=== PATIENT | male | born 1950 | race Caucasian/White ===

== ENCOUNTER → 2020-02-29 11:45 | Outpatient (BNVA) | payer MEDICARE, MEDICAID, SELFPAY | PROVIDERS: PCP Nurse Practitioner Family; Visit Provider Nurse Practitioner Family | DX: I10 Essential (primary) hypertension (principal); E11.9 Type 2 diabetes mellitus without complications | CPT/HCPCS: 80053; 80061; 83036; 85025 ==

== ENCOUNTER → 2020-05-17 09:51 | Outpatient (BNVA) | payer MEDICARE, MEDICAID, SELFPAY | PROVIDERS: PCP Nurse Practitioner Family; Visit Provider Urology | DX: R97.20 Elevated prostate specific antigen [PSA] (principal); N40.1 Benign prostatic hyperplasia with lower urinary tract symptoms; N52.1 Erectile dysfunction due to diseases classified elsewhere | CPT/HCPCS: 81003; 84153 ==

== ENCOUNTER → 2020-06-07 10:59 | Outpatient (BNVA) | payer MEDICARE, MEDICAID, SELFPAY | PROVIDERS: PCP Nurse Practitioner Family; Visit Provider Nurse Practitioner Family | DX: E11.9 Type 2 diabetes mellitus without complications (principal); I10 Essential (primary) hypertension; E78.5 Hyperlipidemia, unspecified; J44.9 Chronic obstructive pulmonary disease, unspecified; E11.65 Type 2 diabetes mellitus with hyperglycemia; Z86.711 Personal history of pulmonary embolism; Z78.9 Other specified health status; Z72.0 Tobacco use | CPT/HCPCS: 80053; 80061; 82043; 83036; 84443; 85025 ==

== ENCOUNTER → 2020-10-20 13:49 | Outpatient (BNVA) | payer MEDICARE, MEDICAID, SELFPAY | PROVIDERS: PCP Nurse Practitioner Family; Visit Provider Nurse Practitioner Family | DX: N48.89 Other specified disorders of penis (principal); R81 Glycosuria; E11.65 Type 2 diabetes mellitus with hyperglycemia; R21 Rash and other nonspecific skin eruption; N48.1 Balanitis | CPT/HCPCS: 36416; 80053; 80061; 81000; 82962; 83036; 85025; 87530 ==

== ENCOUNTER → 2021-02-09 09:44 | Outpatient (BNVA) | payer MEDICARE, MEDICAID, SELFPAY | PROVIDERS: PCP Nurse Practitioner Family; Visit Provider Nurse Practitioner Family | DX: E11.65 Type 2 diabetes mellitus with hyperglycemia (principal) | CPT/HCPCS: 80053; 80061; 82043; 83036; 85025 ==

== ENCOUNTER → 2021-05-17 08:38 | Outpatient (BNVA) | payer MEDICARE, MEDICAID, SELFPAY | PROVIDERS: PCP Nurse Practitioner Family; Visit Provider Urology | DX: N40.1 Benign prostatic hyperplasia with lower urinary tract symptoms (principal); R97.20 Elevated prostate specific antigen [PSA] | CPT/HCPCS: 81003; 84153 ==

== ENCOUNTER 2021-10-02 08:05 | Inpatient (IN) | payer MEDICARE, MEDICAID, SELFPAY ==
[2021-10-02] VITALS (24 sets, daily range): BP systolic 93–157; BP diastolic 58–94; PULSE 72–128; RESP 16–29; TEMP 36.4–39.4; O2SAT 92–99; BMI 25.0
--- NOTE | 2021-10-02 08:13 | ECG_ITS ---
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 Measurements Intervals [place] Rate: 120 P: 49 WI: 214 QRS: -50 QRSD: 94 T: 31 QT: 420 QTc: 595 Interpretive Statements SINUS TACHYCARDIA WITH FIRST DEGREE AV BLOCK PATTERN CONSISTENT WITH PULMONARY DISEASE SEPTAL MYOCARDIAL INFARCTION , OF INDETERMINATE AGE [40+ ms Q WAVE IN V1/V2] INFERIOR MYOCARDIAL INFARCTION , OF INDETERMINATE AGE [40+ ms Q WAVE AND/OR ST/T ABNORMALITY IN II/aVF] Compared to ECG 04/03/2019 16:19:50 First degree AV block now present Myocardial infarct finding now present Sinus rhythm no longer present Left-axis deviation no longer present Intraventricular conduction delay no longer present Electronically Signed On 10-03-2021 9:16:39 CDT by Albert Eng M.D. [id number]
--- NOTE | 2021-10-02 08:13 | CT_ITS ---
WS: [id number] CT ABDOMEN PELVIS TECHNIQUE: Contrast-enhanced CT of the abdomen and pelvis with coronal and sagittal reformatted image s. CLINICAL INFORMATION: abd pain COMPARISON: None. DLP: 1613.[address] scans at [facility] use at least one of these dose optimization techniques: automated e xposure control; mA and/or kV adjustment per patient size (includes targeted exams where dose is matc hed to clinical indication); or iterative reconstruction. FINDINGS:Diffuse enhancement of the appendix with fluid distention compatible with acute appendicitis . Appendix measures 8-9 mm in transverse dimension. Appendix extends anteriorly and cephalad with tip in the anterior RIGHT abdomen. Surrounding inflammatory stranding and edema. One or two tiny locules of associated air suspicious for microperforation. No drainable abscess or fluid collection. Small a mount of free fluid in the pelvis. Mild diffuse fatty infiltration liver. Normal portal vein and splenic vein. Normal GE junction. Lizzeth l spleen. Mild fatty atrophy of the pancreas. Adrenal glands are normal. Normal renal parenchymal enh ancement. No hydronephrosis. Small LEFT renal cysts. Tiny LEFT pleural effusion. Bibasilar atelectasi s. Sternotomy. Normal caliber abdominal aorta. Moderate aortic atheromatous disease. No aneurysm. Cande iac and SMA are patent. Markedly enlarged heterogeneously enhancing nodular prostate. Prominent nodularity along the ventral superior prostate. Indentation on the bladder with diffuse bladder wall thickening compatible with bl adder outlet obstruction. Mild thickening of the seminal vesicles. Small amount of free fluid in the pelvis. Sigmoid diverticulosis. No evidence of high-grade small or large bowel obstruction. Small amount of fluid along the RIGHT inguinal canal. Grade 1 anterolisthesis L4 on L5. Chronic anter ior wedging in the lower thoracolumbar junction at T12-L1. RIGHT external iliac artery stents CT/CT abdomen pelvis w con* [id number] IMPRESSION: 1. Findings compatible with acute appendicitis. Appendix extends anterior and cephalad with tip in the RIGHT midabdomen. 1 or 2 tiny locules of air about the appendix tip suspicious for microperforation. 2. No evidence of drainable abscess or fluid collection. 3. Small amount of free fluid in the pelvis. 4. Markedly enlarged heterogeneous nodular prostate measuring 5.1 x 5.7 x 7.8 cm AP by transverse by craniocaudal. Recommend correlation PSA. Findings suspic ious for neoplasia/hyperplasia 5. Evidence of bladder outlet obstruction with diffuse bladder wall thickening . 6. Incidental fat-containing umbilical hernia. 7. Trace LEFT pleural fluid. Bibasilar atelectasis Notified aThir Roth DO at 10/02/2021 10:19 AM.
--- NOTE | 2021-10-02 08:21 | PC.NURSE ---
PT PLACED ON CONTINUOUS SPO2, NIBP, AND CM.
[2021-10-02] MEDS: ondansetron 2 mg/ML SDV 2 mL 4 MG IVP (08:28)
--- NOTE | 2021-10-02 08:36 | XR_ITS ---
WS: [id number] XR chest 1V portable [id number] REASON FOR EXAM: dyspnea/cough FINDINGS: Status post coronary artery bypass surgery. Mild cardiomegaly. Moderate tortuosity the thoracic aorta without aneurysmal dilatation. No acute pulmonary parenchymal abnormality is identified. There is calcified granulomatous disease bi laterally. There is blunting of both costophrenic angles, presumably scarring. There is moderate degenerative spondylosis in the mid and lower thoracic spine and moderately severe degenerative arthropathy in both shoulder joints most severe on the left. XR/XR chest 1V portable [id number] IMPRESSION: No acute chest abnormality.
--- NOTE | 2021-10-02 08:36 | W.ED.ABDPA2 ---
HPI - Abdominal Pain General: Chief Complaint: Abdominal Pain Stated Complaint: ABDOMINAL PAIN Time Seen by Provider: 10/02/21 08:10 Source: patient Mode of arrival: EMS Limitations: no limitations History of Present Illness: 71-year-old male who presents to the emergency room with complaints of right upper quadrant abdominal pain and tenderness. He is also short of breath and tachycardic on arrival. He states his breathing is actually at his baseline is not normally on oxygen but is requiring oxygen on arrival here. Patient denies any chest pain. He has had some vomiting. Denies any hematochezia melena hematemesis or coffee-ground emesis eyes any dysuria urgency or frequency or fever sweats or chills he is not noticed anything that exacerbates or relieves it is not tried any [id number] medications for it. MD elicited complaint: abdominal pain Onset (ago): day(s) Pain Consistency: constant Location: RUQ Severity: moderate Quality: cramping Radiation: none Migration to: no migration Exacerbating factors: nothing Relieving factors: nothing Associated Symptoms: Reports GI cramping; Denies anorexia, belching, bloating, change in bowel habits, change in stool character, chills, coffee ground emesis, constipation, diarrhea, dyspepsia, dysuria, excessive flatus, fever(s), heartburn, hematochezia, hematuria, hematemesis, fecal incontinence, loose stools, melena, nausea, poor appetite, syncope and vomiting Review of Systems Const: Denies: fever(s) or chills ENMT: Denies: throat pain, ear or mastoid pain, nasal discharge or nasal congestion Card: Denies: syncope Resp: Denies: dyspnea, productive cough or non-productive cough GI: Reports: GI cramping; Denies: nausea, vomiting, hematemesis, coffee ground emesis, heartburn, diarrhea, constipation, bloating, belching, excessive flatus, fecal incontinence, change in bowel habits, change in stool character, hematochezia or melena : Denies: dysuria or hematuria Skin/Breast: Denies: rash or pruritus PFS ED PFSH: Medical History Anticoagulation adequate with anticoagulant therapy BPH (benign prostatic hyperplasia) BPH loc w urin obs/LUTS COPD (chronic obstructive pulmonary disease) Diabetes Dyslipidemia Elevated PSA HTN (hypertension) Hx pulmonary embolism PAD (peripheral artery disease) Statin intolerance Tobacco abuse Surgical History S/P CABG (coronary artery bypass graft) S/P PTCA (percutaneous transluminal coronary angioplasty) Social History Smoking and tobacco status: current every day smoker cigarettes Packs smoked per day: 2 Years cigarettes smoked: 50 Second hand smoke exposure: Yes Alcohol intake: current Alcohol intake frequency: 3 or more drinks per day Alcohol type: hard liquor Caregiver/support person: Yes Lives independently: Yes Household members: spouse Housing: House Marital status: Current occupational status: retired History of recent travel: No Current gender identity: Male Special jaison needs: No Agree to transfusion: Yes Physical Exam Const: GENERAL APPEARANCE: cooperative and comfortable ORIENTATION/CONSCIOUSNESS: Yes awake, Yes oriented to person, Yes oriented to place and Yes oriented to time HENMT: COMMON NORMALS: normocephalic, atraumatic and hearing grossly normal bilaterally HEAD & SCALP: normocephalic and atraumatic Neck/C-Spine: COMMON NORMALS: no JVD Resp: COMMON NORMALS: normal respiratory effort, No retractions, No use of accessory muscles and clear to auscultation bilaterally AUSCULTATION: clear to auscultation bilaterally Cardio: COMMON NORMALS: no JVD, regular rate, regular rhythm and No murmurs present (Cardio) RATE: regular rate RHYTHM: regular rhythm GI: COMMON NORMALS: No hepatosplenomegaly present AUSCULTATION: Yes normoactive bowel sounds PALPATION: Yes Tenderness to palpation present (GI) Details: RUQ, No Guarding due to palpation present (GI) and Yes No hepatosplenomegaly present OTHER: Umbilical hernia easily reducible Extremity: COMMON NORMALS: normal to inspection, capillary refill normal, no clubbing, cyanosis or edema, no calf tenderness and no pedal edema Neuro: SENSORIUM/ORIENTATION: Yes oriented to person, Yes oriented to place and Yes oriented to time Skin: COMMON NORMALS: no rashes or lesions noted GENERAL SKIN EXAM: no rashes or lesions noted Course Vital Signs: Vital signs: Vital Signs Temperature 102.9 F H 10/02/21 08:08 Pulse Rate 123 H 10/02/21 08:08 Respiratory Rate 20 H 10/02/21 09:09 Blood Pressure 135/87 10/02/21 08:08 Pulse Oximetry 92 10/02/21 09:09 MDM - Abdominal Pain Medical Decision Making Patient's pain is localized no peritoneal signs White count normal CT shows acute appendicitis with microperforations. Started on Zosyn. Will admit to the hospitalist consult surgery Medical Records I reviewed the patient's medical records. Lab Data I reviewed the patient's lab results. : 10/02/21 08:20 10/02/21 08:20 Labs/Radiology: Radiology Impressions Abdomen/Pelvis CT 10/02/21 08:13 IMPRESSION: 1. Findings compatible with acute appendicitis. Appendix extends anterior and cephalad with tip in the RIGHT midabdomen. 1 or 2 tiny locules of air about the appendix tip suspicious for microperforation. 2. No evidence of drainable abscess or fluid collection. 3. Small amount of free fluid in the pelvis. 4. Markedly enlarged heterogeneous nodular prostate measuring 5.1 x 5.7 x 7.8 cm AP by transverse by craniocaudal. Recommend correlation PSA. Findings suspicious for neoplasia/hyperplasia 5. Evidence of bladder outlet obstruction with diffuse bladder wall thickening. 6. Incidental fat-containing umbilical hernia. 7. Trace LEFT pleural fluid. Bibasilar atelectasis Notified Tahir Roth DO at 10/02/2021 10:19 AM. Chest X-Ray 10/02/21 08:36 IMPRESSION: No acute chest abnormality. Laboratory Results WBC 6.8 10^3/uL (4.0-10.0) 10/02/21 08:20 RBC 4.92 10^6/uL (4.1-5.3) 10/02/21 08:20 Hgb 16.1 g/dL (11.7-16.6) 10/02/21 08:20 Hct 46.5 % (42.0-52.0) 10/02/21 08:20 MCV 94.5 fl (80-94) H 10/02/21 08:20 MCH 32.7 pg (28.0-34.0) 10/02/21 08:20 MCHC 34.6 g/dL (30.0-36.0) 10/02/21 08:20 RDW 14.2 % (12.1-15.1) 10/02/21 08:20 Plt Count 166 10^3/cmm (130-400) 10/02/21 08:20 MPV 11.0 fL (7.4-10.4) H 10/02/21 08:20 Neut % (Auto) 87.8 % 10/02/21 08:20 Lymph % (Auto) 7.3 % 10/02/21 08:20 [place] % (Auto) 4.0 % 10/02/21 08:20 Eos % (Auto) 0.0 % 10/02/21 08:20 Baso % (Auto) 0.3 % 10/02/21 08:20 Neut # (Auto) 5.99 10^3/uL (1.8-7.7) 10/02/21 08:20 Lymph # (Auto) 0.5 10^3/uL (0.8-4.8) L 10/02/21 08:20 [place] # (Auto) 0.3 10^3/uL (0.2-0.9) 10/02/21 08:20 Eos # (Auto) 0.0 10^3/uL (0.0-0.8) 10/02/21 08:20 Baso # (Auto) 0.0 10^3/uL (0.0-0.1) 10/02/21 08:20 Nucleated RBC % (auto) 0 % 10/02/21 08:20 Nucleated RBCs # 0.0 /100WBC 10/02/21 08:20 Sodium 134 mmol/L (136-145) L 10/02/21 08:20 Potassium 3.6 mmol/L (3.5-5.1) 10/02/21 08:20 Chloride 95 mmol/L (98-107) L 10/02/21 08:20 Carbon Dioxide 27 mmol/L (22-29) 10/02/21 08:20 Anion Gap 15.6 (5-19) 10/02/21 08:20 BUN 22 mg/dL (8-23) 10/02/21 08:20 Creatinine 0.9 mg/dL (0.7-1.2) 10/02/21 08:20 GFR Calculation Not Reportable 10/02/21 08:20 Glucose 217 mg/dL (65-115) H 10/02/21 08:20 Calculated Osmolality 288 mOsm/kg (285-295) 10/02/21 08:20 Lactic Acid 1.7 mmol/L (0.5-2.2) 10/02/21 08:20 Calcium 8.9 mg/dL (8.5-10.5) 10/02/21 08:20 Total Bilirubin 0.8 mg/dL (0.15-1.2) 10/02/21 08:20 AST 29 U/L (0-40) 10/02/21 08:20 ALT 27 U/L (0-41) 10/02/21 08:20 Alkaline Phosphatase 67 IU/L (40-130) 10/02/21 08:20 Total Protein 6.3 g/dL (6.6-8.7) L 10/02/21 08:20 Albumin 3.6 g/dL (3.5-5.2) 10/02/21 08:20 Globulin 2.7 g/dL (1.3-4.6) 10/02/21 08:20 Lipase 26 U/L (13-60) 10/02/21 08:20 Urine Color Dark yellow (Yellow) 10/02/21 08:56 Urine Appearance Clear (CLEAR) 10/02/21 08:56 Urine pH 7 (5-7) 10/02/21 08:56 Ur Specific [place] 1.015 (1.005-1.030) 10/02/21 08:56 Urine Protein 1+ (Negative) H 10/02/21 08:56 Urine Glucose (UA) 1+ (Normal) H 10/02/21 08:56 Urine Ketones 2+ (Negative) H 10/02/21 08:56 Urine Blood Neg (Negative) 10/02/21 08:56 Urine Nitrate Negative (Negative) 10/02/21 08:56 Urine Bilirubin 1+ (Negative) H 10/02/21 08:56 Urine Urobilinogen 8 mg/dL (Negative) H 10/02/21 08:56 Ur Leukocyte Esterase Negative (Negative) 10/02/21 08:56 Urine RBC None /hpf (0-2) 10/02/21 08:56 Urine WBC 0-4 /hpf (0-5) H 10/02/21 08:56 Ur Squamous Epith Cells 0-4 /hpf (0-5) H 10/02/21 08:56 Amorphous Sediment Not Reportable 10/02/21 08:56 Urine Bacteria 1+ /hpf (NONE) H 10/02/21 08:56 Hyaline Casts 0-4 /lpf H 10/02/21 08:56 Urine Mucus 1+ /hpf 10/02/21 08:56 Discharge Plan Discharge Patient Disposition: Admitted As Inpatient Clinical Impression: Acute appendicitis, S/P PTCA (percutaneous transluminal coronary angioplasty), HTN (hypertension), Diabetes, S/P CABG (coronary artery bypass graft), Constipation Condition: Stable Coding Level of Care Code ED Undercutter Operator for Chg Fwd Exam Comprehensive
[2021-10-02] MEDS: lactated ringers 1,000 ML 999 ML IV (08:37)
[2021-10-02 08:40] LABS: Basophils % 0.3 %; Hematocrit 46.5 % (42.0-52.0); Hemoglobin 16.1 g/dL (11.7-16.6); Lymphocytes # 0.5 10^3/uL (0.8-4.8); Lymphocytes % 7.3 %; Mean Corpuscular HGB Conc 34.6 g/dL (30.0-36.0); Mean Corpuscular Hemoglobin 32.7 pg (28.0-34.0); Mean Corpuscular Volume 94.5 fl (80-94); Monocytes # 0.3 10^3/uL (0.2-0.9); Neutrophils # 5.99 10^3/uL (1.8-7.7); Neutrophils % 87.8 %; Nucleated Red Blood Cells % 0 %; Platelet Count 166 10^3/cmm (130-400); Red Blood Count 4.92 10^6/uL (4.1-5.3); Red Cell Distribution Width 14.2 % (12.1-15.1); White Blood Count 6.8 10^3/uL (4.0-10.0)
[2021-10-02 08:53] LABS: Lactic Sepsis W/Reflex 1.7 mmol/L (0.5-2.2)
[2021-10-02 09:01] LABS: Alanine Aminotransferase 27 U/L (0-41); Albumin Level 3.6 g/dL (3.5-5.2); Alkaline Phosphatase 67 IU/L (40-130); Anion Gap 15.6 (5-19); Aspartate Amino Transferase 29 U/L (0-40); Blood Urea Nitrogen 22 mg/dL (8-23); Calcium 8.9 mg/dL (8.5-10.5); Carbon Dioxide 27 mmol/L (22-29); Chloride 95 mmol/L (98-107); Globulin 2.7 g/dL (1.3-4.6); Glucose 217 mg/dL (65-115); Lipase 26 U/L (13-60); Osmolality Calculated 288 mOsm/kg (285-295); Potassium 3.6 mmol/L (3.5-5.1); Sodium 134 mmol/L (136-145); Total Bilirubin 0.8 mg/dL (0.15-1.2); Total Protein 6.3 g/dL (6.6-8.7)
[2021-10-02] MEDS: morphine 4 mg/mL SDV 1 mL IVP (09:09)
[2021-10-02] MEDS: iohexol 300 mg/mL 100 mL Btl IV (09:45)
[2021-10-02 10:00] LABS: Glucose Urine UA 1+ (Normal); Protein Urine 1+ (Negative); Specific Gravity, Urine 1.015 (1.005-1.030); Urine Appearance Clear (CLEAR); Urine Color Dark Yellow (Yellow); pH Urine 7 (5-7)
[2021-10-02 10:01] LABS: Ketones Urine 2+ (Negative)
[2021-10-02 10:02] LABS: Blood Urine Neg (Negative)
[2021-10-02 10:04] LABS: Add Urine Microscopic? YES; Bacteria Urine 1+ /hpf; Bilirubin Urine 1+ (Negative); Leukocyte Esterase Urine Negative (Negative); Nitrate Urine Negative (Negative); Squamous Epithelial Cell Urine 0-4 /hpf (0-5); Urobilinogen Urine 8 mg/dL (Negative); WBC Urine 0-4 /hpf (0-5)
[2021-10-02 10:05] LABS: Add Urine Culture? No; Hyaline Casts Urine 0-4 /lpf; Mucus Urine 1+ /hpf
[2021-10-02] MEDS: piperacillin-tazobactam 3.375 GM in sodium chloride 0.9% (plus) 50 ML IV ×3 (10:42→23:49)
--- NOTE | 2021-10-02 10:58 | PC.PHAR ---
pts verified pts medications-pts states the pt is no longer taking fenofibrate 145mg last filled 07/21/21 30d/s
--- NOTE | 2021-10-02 11:00 | P.CONIM_ITS ---
Providers/Reason For Consult Consulting Physician/Specialty*: Edward Aranda MD, hospitalist Reason for Consult*: Medical management, COPD, coronary disease, history of pulmonary embolism, diabetes Requesting Physician: Delia Aviles MD Attending Physician: Edward Aranda MD Primary Care Provider: HARLEY Manning History of Present Illness History of Present Illness Pito Lucas is a 71 year old male who presents to the emergency department with 3 days of abdominal pain in the right lower quadrant, nausea, vomiting as well as chills. He had not recorded any fever at home, although he has 1 on admission to the emergency department He reported he was not getting any better so came in. Last bowel movement 2 to 3 days ago. Reports no blood in his emesis, or stool. Reports no recent issues with his heart and last intervention was when bypass with surgery was done in 2019. At that point he had a complica tion of pulmonary embolism, but is not on anticoagulation currently. He is on antiplatelet medication, aspirin daily. He denies any shortness of breath although he carries a diagnosis of COPD. He does use inhalers on occasion. He continues to smoke. Review of Systems General: Reports: 10 or more systems reviewed and unremarkable except in HPI and below Const: Reports: chills; Denies: fever(s) Eyes: Denies: change in vision ENMT: Reports: other (Dry mouth); Denies: throat pain Card: Denies: chest pain Resp: Denies: dyspnea GI: Reports: abdominal pain, nausea and vomiting; Denies: hematemesis or hematochezia : Denies: flank pain Musc: Denies: neck pain Skin/Breast: Denies: rash Neuro: Denies: headache(s) Psych: Denies: anxiety or depression Endo: Denies: polyuria Sandro/Lymph: Denies: easy bruising All/Imm: Denies: urticaria Medications/Allergies Home Medications Medication Instructions Recorded Confirmed Last Taken Type carvedilol 6.25 mg tablet 6.25 mg PO Q12H #180 tab 01/06/21 10/02/21 09/29/21 Rx multivitamin 1 tab PO DAILY 07/26/21 10/02/21 Unknown History albuterol sulfate 90 mcg/actuation 2 puff INHALATION Q4H PRN 10/02/21 10/02/21 Unknown History aerosol inhaler (Ventolin HFA) aspirin 81 mg tablet,delayed 81 mg PO QAM 10/02/21 10/02/21 09/29/21 History release finasteride 5 mg tablet 5 mg PO QAM 10/02/21 10/02/21 Unknown History glipizide 10 mg tablet, extended 10 mg PO QAM 10/02/21 10/02/21 09/29/21 History release 24 hr lisinopril 20 mg tablet 20 mg PO QAM 10/02/21 10/02/21 09/29/21 History tamsulosin 0.4 mg capsule 0.4 mg PO BID 10/02/21 10/02/21 09/29/21 History umeclidinium 62.5 mcg/actuation 1 inh INHALATION DAILY 10/02/21 10/02/21 Unknown History blister powder for inhalation (Incruse Ellipta) Allergies Allergy/AdvReac Type Severity Reaction Status Date / Time No Known Allergies Allergy Verified 10/02/21 10:57 PFSH Acute PFSH: Medical History (Updated 10/02/21 @ 11:03 by Edward Aranda MD) Anticoagulation adequate with anticoagulant therapy BPH (benign prostatic hyperplasia) BPH loc w urin obs/LUTS CAD (coronary artery disease) COPD (chronic obstructive pulmonary disease) Diabetes Dyslipidemia Elevated PSA HTN (hypertension) Hx pulmonary embolism PAD (peripheral artery disease) Statin intolerance Tobacco abuse Surgical History S/P CABG (coronary artery bypass graft) S/P PTCA (percutaneous transluminal coronary angioplasty) Family History (Updated 10/02/21 @ 11:04 by Edward Aranda MD) Other Diabetes Social History (Updated 10/02/21 @ 11:04 by Edward Aranda MD) Smoking and tobacco status: current every day smoker cigarettes Packs smoked per day: 2 Years cigarettes smoked: 50 Second hand smoke exposure: Yes Alcohol intake: current Alcohol intake frequency: few times a week Alcohol type: hard liquor Caregiver/support person: Yes Lives independently: Yes Household members: spouse Housing: House Marital status: Current occupational status: retired History of recent travel: No Current gender identity: Male Special jaison needs: No Agree to transfusion: Yes Vitals/I&O/Wt Last Vital Signs Temp 102.9 F H 10/02/21 08:08 Pulse 123 H 10/02/21 08:08 Resp 20 H 10/02/21 09:09 BP 135/87 10/02/21 08:08 Pulse Ox 92 10/02/21 09:09 Weight last 48 hrs Weight 74.843 kg Physical Exam Narrative: General exam is a white male, conversant and pleasant, reporting he has right lower quadrant abdominal pain. HEENT: Pupils equally round. Oropharynx clear. Head is atraumatic and normocephalic Neck is supple no lymphadenopathy or thyromegaly Cardiovascular tachycardic, no murmur. No S3 or S4 Lungs are clear to auscultation bilaterally. Diminished breath sounds are noted. No wheezes or crackles Abdomen is tender right lower quadrant. No significant rebound. No obvious organomegaly. Positive bowel sounds exam is deferred Extremities no cyanosis clubbing or edema, cap refill brisk Skin no rash Neuro no focal deficits. Data : 10/02/21 08:20 10/02/21 08:20 Other Labs: EKG demonstrates sinus tachycardia, left axis deviation, Q waves inferiorly, intraventricular conduction delay borderline Chest x-ray no infiltrate CT abdomen pelvis concerning for acute appendicitis, small amount of air about the tip suspicious for microperforation, small amount of free fluid in the pelvis, nodular prostate, trace left pleural fluid Blood cultures were drawn LFTs normal Calcium normal Lactic acid 1.7 Urinalysis 0-4 white blood cells 0-4 red blood cells Micro: Microbiology 10/02/21 09:03 Blood Culture - Preliminary Blood SPECIMEN COLLECTED 10/02/21 08:20 Blood Culture - Preliminary Blood SPECIMEN COLLECTED A&P Assessment and plan (1) Acute appendicitis: Patient with right lower quadrant pain, fever, CT scan all consistent with acute appendicitis. Surgery is evaluating, and taking him to the OR today N.p.o. status Pain and nausea control IV antibiotics consisting of Zosyn Secondary to fever, presentation blood cultures were drawn. Status: Acute (2) CAD (coronary artery disease): Patient with no significant cardiac symptoms since bypass surgery in 2019 Continue his regular medicines of aspirin, carvedilol. He is intolerant of statins Status: Acute (3) COPD (chronic obstructive pulmonary disease): Encourage smoking cessation as he has ongoing tobacco dependency Offered nicotine patch which he refused DuoNeb every 6 hours, budesonide Incentive spirometry will be appropriate following surgery Status: Acute Qualifiers: COPD type: unspecified COPD Qualified Code(s): J44.9 - Chronic obstructive pulmonary disease, unspecified (4) Diabetes: ConsistentMild sliding scale insulin Diet, when allowed to have p.o. Status: Acute (5) Hx pulmonary embolism: Past history of pulmonary embolism associated with coronary artery bypass grafting. Currently not on anticoagulation. Recommend DVT prophylaxis anticoagulation, following surgery Status: Acute (6) HTN (hypertension): Continue home medications Status: Acute Plan Thank you for this consult, I will continue to follow along with you Full code SCDs currently for DVT prophylaxis, but will need pharmacologic anticoagulation following surgery Consult Attestations Medical Necessity Statement: May need less than 2 midnight stay for evaluation and treatment of acute appendicitis, depending upon surgical findings. Coding Level of Care Code Acute Administrative Executive for [facility] Fwd Diagnoses Acute appendicitis K35.80 CAD (coronary artery disease) I25.10 COPD (chronic obstructive pulmonary disease) J44.9 COPD type: unspecified COPD Diabetes E11.9 Hx pulmonary embolism Z86.711 HTN (hypertension) I10
--- NOTE | 2021-10-02 11:48 | P.HP_ITS ---
Providers/Chief Complaint Admitting Physician: Maurizio Oates MD Primary Care Provider: HARLEY Manning Chief Complaint: ABDOMINAL PAIN History of Present Illness History of present illness: Pito Lucas is a 71 year old male with acute onset of abdominal pain over the past 3 days particularly towards the right lower quadrant associated with nausea and vomiting and chills. As the pain got worse patient decided to come to the emergency department for further evaluation he denies any other constitutional symptoms. Patient is well-known with history of diabetes mellitus type 2 on glipizide. Further blood work showed a WBC count of 6.8, platelet count of 166, lactic acid of 1.7, creatinine of 0.9 and glucose 217. Patient is well-known with history of prostate cancer with metastasis. Patient undergone a CT scan Of the abdomen and pelvis that showed; 1.? Findings compatible with acute appendicitis. Appendix extends anterior and cephalad with tip in the RIGHT midabdomen. 1 or 2 tiny locules of air about the appendix tip suspicious for microperforation. 2.? No evidence of drainable abscess or fluid collection. 3.? Small amount of free fluid in the pelvis. 4.? Markedly enlarged heterogeneous nodular prostate measuring 5.1 x 5.7 x 7.8 cm AP by transverse by craniocaudal. Recommend correlation PSA. Findings suspicious for neoplasia/hyperplasia 5.? Evidence of bladder outlet obstruction with diffuse bladder wall thickening. 6.? Incidental fat-containing umbilical hernia. 7.? Trace LEFT pleural fluid. Bibasilar atelectasis General surgery was consulted for further evaluation and potential intervention, patient reports that he had a colonoscopy about 5 to 6 years ago and was normal. Review of Systems General: Reports: 10 or more systems reviewed and unremarkable except in HPI and below Medications/Allergies Home Medications Medication Instructions Recorded Confirmed Last Taken Type carvedilol 6.25 mg tablet 6.25 mg PO Q12H #180 tab 01/06/21 10/02/21 09/29/21 Rx multivitamin 1 tab PO DAILY 07/26/21 10/02/21 Unknown History albuterol sulfate 90 mcg/actuation 2 puff INHALATION Q4H PRN 10/02/21 10/02/21 Unknown History aerosol inhaler (Ventolin HFA) aspirin 81 mg tablet,delayed 81 mg PO QAM 10/02/21 10/02/21 09/29/21 History release finasteride 5 mg tablet 5 mg PO QAM 10/02/21 10/02/21 Unknown History glipizide 10 mg tablet, extended 10 mg PO QAM 10/02/21 10/02/21 09/29/21 History release 24 hr lisinopril 20 mg tablet 20 mg PO QAM 10/02/21 10/02/21 09/29/21 History tamsulosin 0.4 mg capsule 0.4 mg PO BID 10/02/21 10/02/21 09/29/21 History umeclidinium 62.5 mcg/actuation 1 inh INHALATION DAILY 10/02/21 10/02/21 Unknown History blister powder for inhalation (Incruse Ellipta) Allergies Allergy/AdvReac Type Severity Reaction Status Date / Time No Known Allergies Allergy Verified 10/02/21 10:57 PFSH Acute PFSH: Medical History Anticoagulation adequate with anticoagulant therapy BPH (benign prostatic hyperplasia) BPH loc w urin obs/LUTS CAD (coronary artery disease) COPD (chronic obstructive pulmonary disease) Diabetes Dyslipidemia Elevated PSA HTN (hypertension) Hx pulmonary embolism PAD (peripheral artery disease) Statin intolerance Tobacco abuse Surgical History S/P CABG (coronary artery bypass graft) S/P PTCA (percutaneous transluminal coronary angioplasty) Family History Other Diabetes Social History Smoking and tobacco status: current every day smoker cigarettes Packs smoked per day: 2 Years cigarettes smoked: 50 Second hand smoke exposure: Yes Alcohol intake: current Alcohol intake frequency: few times a week Alcohol type: hard liquor Caregiver/support person: Yes Lives independently: Yes Household members: spouse Housing: House Marital status: Current occupational status: retired History of recent travel: No Current gender identity: Male Special jaison needs: No Agree to transfusion: Yes Vitals/I&O/Wt Last Vital Signs Temp 99.9 F H 10/02/21 11:12 Pulse 109 H 10/02/21 11:12 Resp 18 10/02/21 11:12 BP 129/86 10/02/21 11:12 Pulse Ox 96 10/02/21 11:12 Weight last 48 hrs Weight 165 lb Physical Exam Const: COMMON NORMALS: no acute distress and patient oriented x3 GENERAL APPEARANCE: cooperative ORIENTATION/CONSCIOUSNESS: Yes awake, Yes oriented to person, Yes oriented to place and Yes oriented to time HENMT: COMMON NORMALS: normocephalic HEAD & SCALP: normocephalic Eye: COMMON NORMALS: Equal, round and reactive pupils present and no scleral icterus PUPIL: Yes Equal, round and reactive pupils present Lymph: LYMPHATIC: no lymphadenopathy noted Chest: COMMONS NORMALS: normal inspection of the chest Resp: COMMON NORMALS: normal respiratory effort and clear to auscultation bilaterally AUSCULTATION: clear to auscultation bilaterally Cardio: COMMON NORMALS: S1 normal heart sound present and S2 normal heart sound present; negative for No murmurs present (Cardio) HEART SOUNDS: S1 normal heart sound present and S2 normal heart sound present GI: COMMON NORMALS: Soft to palpation; negative for No hepatosplenomegaly present INSPECTION: Yes normal to inspection PALPATION: Yes Soft to palpation, No Firmness to palpation present (GI), Yes Tenderness to palpation present (GI) Details: RLQ, Yes Guarding due to palpation present (GI) (Maximal tenderness and guarding at McBurney's point) in the RLQ, No Rigid due to palpation, No No hepatosplenomegaly present and Yes Hernia present umbilical (Chronic incarcerated umbilical hernia) Neuro: COMMON NORMALS: patient oriented x3 SENSORIUM/ORIENTATION: Yes or iented to person, Yes oriented to place and Yes oriented to time Psych: COMMON NORMALS: mental status grossly normal Skin: COMMON NORMALS: no rashes or lesions noted GENERAL SKIN EXAM: no rashes or lesions noted Data : 10/02/21 08:20 10/02/21 08:20 Micro: Microbiology 10/02/21 09:03 Blood Culture - Preliminary Blood SPECIMEN COLLECTED 10/02/21 08:20 Blood Culture - Preliminary Blood SPECIMEN COLLECTED A&P Assessment and plan (1) Acute appendicitis: After thorough history physical examination and reviewing the chart and images with my personal interpretion, I counseled the patient for laparoscopic appendec roger possible open with open umbilical hernia repair. Indications, risks, benefits and alternatives were all discussed with the patient and did agree to proceed. Rationale was carefully and clearly discussed with the patient.Appropriate informed consent have been reviewed and signed Status: Acute Attestations Medical Necessity Statement*: Observation status for perioperative care Coding Level of Care Code Acute Programmer Analyst Health It for [facility] Fwd Diagnoses Acute appendicitis K35.80
--- NOTE | 2021-10-02 11:54 | P.ANESASSM_ITS ---
Pre-Anesthetic Assessment Height/Weight: Height 1.73 m Weight 74.843 kg Temp Pulse Resp BP Pulse Ox 99.9 F H 109 H 18 129/86 96 10/02/21 11:12 10/02/21 11:12 10/02/21 11:12 10/02/21 11:12 10/02/21 11:12 Operation Date: 10/02/21 11:35 Proposed Procedures p Laparoscopic Appendectomy(Not Applicable) - Maurizio Oates MD Familial anesthetic complications: none Was Beta Debra taken within 24 hours: Yes Was Clonidine taken within 24 hours: N/A Last intake: Intake Last Liquid Date 10/01/21 Last Liquid Time 18:00 Last Solid Date 10/01/21 Last Solid Time 12:00 Social Alcohol and Tobacco Exam alert, oriented x 3, clear to auscultation bilaterally and regular rate & rhythm Airway Mallampati: Class III Dentition: chipped and other (multiple missing, poor dentition) Pulmonary Chronic Obstructive Pulmonary Disease CV/HEM Coronary Artery Disease, Hypertension and Peripheral Vascular Disease Metabolic Diabetes Mellitus Anesthetic Plan ASA status: 3 Anesthesia: General Risk of > 500 ml blood loss (7ml/kg in children): No Medications/Allergies Home Medications Medication Instructions Recorded Confirmed Last Taken Type carvedilol 6.25 mg tablet 6.25 mg PO Q12H #180 tab 01/06/21 10/02/21 09/29/21 Rx multivitamin 1 tab PO DAILY 07/26/21 10/02/21 Unknown History albuterol sulfate 90 mcg/actuation 2 puff INHALATION Q4H PRN 10/02/21 10/02/21 Unknown History aerosol inhaler (Ventolin HFA) aspirin 81 mg tablet,delayed 81 mg PO QAM 10/02/21 10/02/21 09/29/21 History release finasteride 5 mg tablet 5 mg PO QAM 10/02/21 10/02/21 Unknown History glipizide 10 mg tablet, extended 10 mg PO QAM 10/02/21 10/02/21 09/29/21 History release 24 hr lisinopril 20 mg tablet 20 mg PO QAM 10/02/21 10/02/21 09/29/21 History tamsulosin 0.4 mg capsule 0.4 mg PO BID 10/02/21 10/02/21 09/29/21 History umeclidinium 62.5 mcg/actuation 1 inh INHALATION DAILY 10/02/21 10/02/21 Unknown History blister powder for inhalation (Incruse Ellipta) Allergies Allergy/AdvReac Type Severity Reaction Status Date / Time No Known Allergies Allergy Verified 10/02/21 10:57 COUNT INCLUDES THE [facility] Anesthesia Medical History Anticoagulation adequate with anticoagulant therapy BPH (benign prostatic hyperplasia) BPH loc w urin obs/LUTS CAD (coronary artery disease) COPD (chronic obstructive pulmonary disease) Diabetes Dyslipidemia Elevated PSA HTN (hypertension) Hx pulmonary embolism PAD (peripheral artery disease) Statin intolerance Tobacco abuse Surgical History S/P CABG (coronary artery bypass graft) S/P PTCA (percutaneous transluminal coronary angioplasty) Family History Other Diabetes Social History Smoking and tobacco status: current every day smoker cigarettes Packs smoked per day: 2 Years cigarettes smoked: 50 Second hand smoke exposure: Yes Alcohol intake: current Alcohol intake frequency: few times a week Alcohol type: hard liquor Caregiver/support person: Yes Lives independently: Yes Household members: spouse Housing: House Marital status: Current occupational status: retired History of recent travel: No Current gender identity: Male Special jaison needs: No Agree to transfusion: Yes Data Anesthesia : 10/02/21 08:20 10/02/21 08:20 Short CBC 10/02/21 Range/Units 08:20 WBC 6.8 (4.0-10.0) 10^3/uL Hgb 16.1 (11.7-16.6) g/dL Hct 46.5 (42.0-52.0) % MCV 94.5 H (80-94) fl Plt Count 166 (130-400) 10^3/cmm Neut % (Auto) 87.8 % Neut # (Auto) 5.99 (1.8-7.7) 10^3/uL BMP 10/02/21 08:20 Sodium 134 L Potassium 3.6 Chloride 95 L Carbon Dioxide 27 BUN 22 Creatinine 0.9 Glucose 217 H Calcium 8.9 Liver Function 10/02/21 Range/Units 08:20 Total Bilirubin 0.8 (0.15-1.2) mg/dL AST 29 (0-40) U/L ALT 27 (0-41) U/L Alkaline Phosphatase 67 (40-130) IU/L Albumin 3.6 (3.5-5.2) g/dL Urine 10/02/21 Range/Units 08:56 Urine Color Dark yellow (Yellow) Urine Appearance Clear (CLEAR) Urine pH 7 (5-7) Ur Specific [place] 1.015 (1.005-1.030) Urine Protein 1+ H (Negative) Urine Glucose (UA) 1+ H (Normal) Urine Ketones 2+ H (Negative) Urine Nitrate Negative (Negative) Urine Bilirubin 1+ H (Negative) Ur Leukocyte Esterase Negative (Negative) Urine RBC None (0-2) /hpf Urine WBC 0-4 H (0-5) /hpf Microbiology 10/02/21 09:03 Blood Culture - Preliminary Blood SPECIMEN COLLECTED 10/02/21 08:20 Blood Culture - Preliminary Blood SPECIMEN COLLECTED Cardiac Studies: No Data to Display
[2021-10-02] MEDS: lidocaine 2% INJ 20 mL INJECTION (13:37)
--- NOTE | 2021-10-02 13:55 | PM.OP ---
Operative Report Date of procedure: October 02, 2021 Pre-op diagnosis: Acute appendicitis with concern of perforation Post-op diagnosis: Acute retrocecal appendicitis with perforation, pus is confined towards the right side of the abdomen with omental encasing Procedure done: 1-Laparoscopic appendectomy and intra-abdominal drain placed 2-laparoscopic umbilical hernia repair without mesh Implants: 19 [place] round the drain Specimens removed/disposition: Hernia sac and content Appendix Surgeon: Maurizio Oates MD Gold Frame Assembler: [place] Circulating nurse Claribel Anesthesia: General (AUTOMOTIVE SERVICE ASSISTANT page) Estimated blood loss (mL): 10 IV fluids: 900 Procedure: Patient after being identified in the holding area and asked to void urine, and informed consent per chart ,patient was then taken back to the OR placed in supine position got intubated by anesthesia left arm was tucked tucked ,Timeout was done verifying the patient's name/date of /planned procedure and destination after the procedure, all were in agreement., preoperative antibiotics administered per protocol. prep and drape of the abdomen was done under the usual sterile technique. Started by longitudinal skin incision supraumbilical, noticed incarcerated omental fat that was dissected and the hernia sac and content were sent for pathology. The fascial defect was about half an inch in diameter. Using a Reyes trocar technique safe entry to the abdominal cavity was achieved verified by using 10 mm zero degree laparoscopy, switched to a 30? scope under direct visualization a suprapubic 5 mm trocar was inserted followed by another 5 mm trocar inserted in the left lower quadrant, I was able to position the patient in an T Sanchez and left side down, noticed to have purulent discharge upon entrance to the abdominal cavity but was more confined to the right side of the abdomen, dissection of the retro-cecal acutely inflamed appendix with perforation there was some adhesions towards the lateral pelvic wall that was taken down by sharp and blunt dissection, attention was deviated to the healthy base of the appendix where I had to switch the camera to 5 mm 30? scope got introduced through the left lower quadrant and through the Reyes trocar under direct visualization a GI stapler 45 mm blue load was applied at the healthy part of the base of the appendix, and an Endoloop PDS was applied onto the mesoappendix for control , the appendix was then retrieved in an Endo Catch bag, final survey was done of the abdomen and pelvis , copious and thorough irrigation with warm saline, and suction was obtained, were mercury fluid like in the pelvis due to reaction from the inflamed appendix. Noticed to have a superficial serosal tear of the sigmoid colon and a figure of eight 2-0 silk suture was placed safely. There were some fibrinous exudates on small bowel loops that was irrigated and cleaned Multiple 5 mm clips were applied onto the mesoappendix as well as the appendectomy staple line and a right lateral pelvic wall for minimal oozing. Final look laparoscopy was done showing no other abnormalities or injuries, I decided to place under direct visualization and 19 [place] rounded [place] drain via the suprapubic trocar in place it was the pelvis and right paracolic gutter. All trocars were taken out under direct visualization after the supraumblical trocar site which is the site of the herniation. Was closed by #1 PDS sutures under direct vision using fascial closure device ,followed by skin closure using skin ktahie of all trocar site incisions. infiltration of local lidocaine 2% was done to all incision sites.Dry dressing was applied. Count was completed at the end of the procedure for [place] , sponges and instruments Patient tolerated the procedure well and was transferred to the recovery area after extubation. I was present for the whole entire procedure
--- NOTE | 2021-10-02 16:00 | ANE.PACU2 ---
Inpatient post-anesthesia follow up: Airway intact: Yes Vital signs: Temperature 98.0 F Pulse Rate 73 Respiratory Rate 16 Blood Pressure 112/66 Pulse Oximetry 99 Oxygen Delivery Me thod [ Nasal Cannula Current Rate & Del micheline] Oxygen Delivery Me thod Room Air Oxygen Flow Rate [ Current Rate 3 & Delivery] Oxygen Flow Rate 4 Fraction of Inspir ed Oxygen Hydration adequate: Yes Nausea and vomiting: No Pain level: 2 Mental status: Baseline
[2021-10-02] MEDS: sodium chloride 0.9% 1,000 ML 75 ML IV (16:21)
[2021-10-02] MEDS: sodium chloride 0.9% 1,000 ML 100 ML IV (16:21)
[2021-10-02] MEDS: carvedilol 6.25 mg Tablet PO (16:22)
[2021-10-02] MEDS: famotidine 20 mg/2 mL INJ IVP (16:26)
[2021-10-02 17:05] LABS: Glucose Point of Care 263 mg/dL (70-110)
[2021-10-02] MEDS: insulin lispro 100 unit/1 mL SUBCUT ×2 (17:53→21:10)
[2021-10-02] MEDS: tamsulosin 0.4 mg Capsule PO (17:53)
[2021-10-02] MEDS: budesonide 0.5 mg/2 mL Neb INHALATION (20:12)
[2021-10-02] MEDS: ipratropium-albuterol 3 mL Neb INHALATION (20:12)
[2021-10-02 20:52] LABS: Glucose Point of Care 304 mg/dL (70-110)
[2021-10-02] MEDS: HYDROcodone-acetaminophen 5-325 mg Tablet 1 TAB PO (21:15)
[2021-10-03] VITALS (11 sets, daily range): BP systolic 94–123; BP diastolic 55–68; PULSE 59–78; RESP 16–20; TEMP 36.2–36.8; O2SAT 90–96
[2021-10-03] MEDS: sodium chloride 0.9% 1,000 ML 100 ML IV ×2 (01:38→12:03)
[2021-10-03] MEDS: famotidine 20 mg/2 mL INJ IVP ×2 (03:41→14:57)
[2021-10-03] MEDS: carvedilol 6.25 mg Tablet PO ×2 (03:41→14:57)
[2021-10-03 04:08] LABS: Hematocrit 42.6 % (42.0-52.0); Hemoglobin 14.1 g/dL (11.7-16.6); Mean Corpuscular HGB Conc 33.1 g/dL (30.0-36.0); Mean Corpuscular Hemoglobin 32.6 pg (28.0-34.0); Mean Corpuscular Volume 98.6 fl (80-94); Mean Platelet Volume 10.6 fL (7.4-10.4); Platelet Count 132 10^3/cmm (130-400); Red Blood Count 4.32 10^6/uL (4.1-5.3); Red Cell Distribution Width 14.7 % (12.1-15.1); White Blood Count 10.3 10^3/uL (4.0-10.0)
[2021-10-03 04:20] LABS: Alanine Aminotransferase 23 U/L (0-41); Albumin Level 2.8 g/dL (3.5-5.2); Alkaline Phosphatase 44 IU/L (40-130); Anion Gap 13.9 (5-19); Aspartate Amino Transferase 28 U/L (0-40); Blood Urea Nitrogen 21 mg/dL (8-23); Calcium 8.1 mg/dL (8.5-10.5); Carbon Dioxide 25 mmol/L (22-29); Chloride 104 mmol/L (98-107); Globulin 2.8 g/dL (1.3-4.6); Glucose 136 mg/dL (65-115); Osmolality Calculated 293 mOsm/kg (285-295); Potassium 3.9 mmol/L (3.5-5.1); Sodium 139 mmol/L (136-145); Total Bilirubin 0.6 mg/dL (0.15-1.2); Total Protein 5.6 g/dL (6.6-8.7)
[2021-10-03 04:54] LABS: Absolute Neutrophil 8.3 10^3/cmm (1.4-6.5); Band Neutrophils Absolute 1.3 10^3/cmm (0.0-1.2); Eosinophils 0 %; Lymphocytes 17 %; Lymphocytes Absolute 1.9 10^3/cmm (1.2-3.4); Monocytes Absolute 0.1 10^3/cmm (0.1-0.6); Platelet Estimate Decreased (Normal); Segmented Neutrophils 68 %; Total Cells Counted 100 (0-100)
[2021-10-03] MEDS: finasteride 5 mg Tablet PO (05:39)
[2021-10-03] MEDS: aspirin 81 mg EC Tablet PO (05:39)
[2021-10-03] MEDS: lisinopril 20 mg Tablet PO (05:39)
[2021-10-03] MEDS: heparin 5,000 unit/mL INJ 1 mL 5000 UNIT SUBCUT ×2 (05:39→17:44)
--- NOTE | 2021-10-03 06:04 | PM.PN ---
Subjective Subjective: Patient was seen and examined, seem to be feeling better, no acute events overnight. 250 mL of serosanguineous per drain. Did not pass gas yet Vitals/I&O/Wt Last Vital Signs Temp 97.2 F L 10/03/21 04:00 Pulse 78 10/03/21 04:00 Resp 17 10/03/21 04:00 BP 100/65 10/03/21 04:00 Pulse Ox 94 10/03/21 04:00 10/02/21 10/02/21 10/03/21 14:59 22:59 06:59 Intake Total 100 / 100 1560 / 1660 1673.333 / 3333.333 Output Total 250 / 250 350 / 600 750 / 1350 Balance -150 / -150 1210 / 1060 923.333 / 1983.333 Weight last 48 hrs Weight 165 lb Physical Exam Narrative: Patient is conscious alert oriented X3 No apparent distress BMI 25.1 Head and neck examination PERRLA no masses no cervical lymphadenopathy no jaundice Cardiac examination audible S1-S2 no murmurs no gallops no arrhythmias Chest is clear bilateral,abscence of Rhonchi or wheezes,no surgical emphysema Abdomen nontender except mildly at the incision sites nondistended soft no organomegaly guarding or rigidity/no signs of peritonitis, drain in place with serosanguineous output Extremities no cyanosis no clubbing no edema Data : 10/03/21 03:57 10/03/21 03:57 Micro: Microbiology 10/02/21 09:03 Blood Culture - Preliminary Blood SPECIMEN COLLECTED 10/02/21 08:20 Blood Culture - Preliminary Blood SPECIMEN COLLECTED A&P Assessment and plan (1) Acute appendicitis: Assessment 71 years old gentleman status post laparoscopic appendectomy for perforated appendicitis Plan From surgical standpoint of view will start advancing diet once patient starts passing gas Encourage ambulation Incentive spirometer every hour We will continue antimicrobial therapy Pharmacologic DVT prophylaxis Wean off O2 Strict I's and O's I appreciate hospitalist input Assurance and education All questions have been answered and all concerns have been addressed to patient's satisfaction. Status: Resolved Attestations Medical Necessity Statement*: Patient requiring hospitalization passing 2 midnights for parenteral antimicrobial therapy and postoperative care for perforated appendicitis Coding Level of Care Code Acute Waiter/Waitress for [facility]a Diagnoses Acute appendicitis K35.80
[2021-10-03 06:18] LABS: Glucose Point of Care 139 mg/dL (70-110)
[2021-10-03] MEDS: budesonide 0.5 mg/2 mL Neb INHALATION ×2 (07:25→21:22)
[2021-10-03] MEDS: ipratropium-albuterol 3 mL Neb INHALATION ×3 (08:30→21:21)
--- NOTE | 2021-10-03 08:38 | PM.PN ---
Subjective Subjective: Mr. Lucas reports that he is doing well after surgery. His abdomen is a little tender as expected. He has passed air several times this morning. He denies any nausea. He is able to drink liquids without difficulty. Medications: Reviewed: Yes Vitals/I&O/Wt Last Vital Signs Temp 97.6 F 10/03/21 07:11 Pulse 66 10/03/21 07:35 Resp 17 10/03/21 07:26 BP 96/61 10/03/21 07:11 Pulse Ox 91 10/03/21 07:26 10/02/21 10/03/21 10/03/21 22:59 06:59 14:59 Intake Total 1560 / 1660 1673.333 / 3333.333 Output Total 350 / 600 750 / 1350 Balance 1210 / 1060 923.333 / 1983.333 Weight last 48 hrs Weight 74.843 kg Physical Exam Narrative: General exam no distress Neck is supple no lymphadenopathy or thyromegaly Cardiovascular tachycardic, no murmur. No S3 or S4 Lungs are clear to auscultation bilaterally. Diminished breath sounds are noted. No wheezes or crackles Abdomen has good bowel sounds. Not distended. Extremities no cyanosis clubbing or edema, cap refill brisk Skin no rash Data : 10/03/21 03:57 10/03/21 03:57 Micro: Microbiology 10/02/21 08:20 Blood Culture - Preliminary Blood NEGATIVE TO DATE 10/02/21 09:03 Blood Culture - Preliminary Blood SPECIMEN COLLECTED A&P Assessment and plan (1) Acute appendicitis: Patient with right lower quadrant pain, fever, CT scan all consistent with acute appendicitis. Surgery performed appendectomy pain yesterday. He is postoperative day #1 status post laparoscopic appendectomy, with umbilical hernia repair as well He is on clear liquid diet. Surgery will decide when this should be advanced. Continue IV Zosyn. Note that appendix was perforated on surgical exploration, No fever since admission. Blood cultures negative to date. Status: Resolved (2) CAD (coronary artery disease): Patient with no significant cardiac symptoms since bypass surgery in 2019 Continue his regular medicines of aspirin, carvedilol. He is intolerant of statins Status: Acute (3) COPD (chronic obstructive pulmonary disease): Encourage smoking cessation as he has ongoing tobacco dependency Offered nicotine patch which he refused Continue DuoNeb every 6 hours, budesonide Incentive spirometry will be appropriate following surgery Status: Acute Qualifiers: COPD type: unspecified COPD Qualified Code(s): J44.9 - Chronic obstructive pulmonary disease, unspecified (4) Diabetes: ConsistentMild sliding scale insulin Diet, when allowed to have p.o. Status: Acute (5) Hx pulmonary embolism: Past history of pulmonary embolism associated with coronary artery bypass grafting. Currently not on anticoagulation. Recommend DVT prophylaxis anticoagulation, following surgery Status: Acute (6) HTN (hypertension): Continue home medications Status: Acute Plan Full code SCDs currently for DVT prophylaxis, but will need pharmacologic anticoagulation following surgery Attestations Medical Necessity Statement*: As per primary Coding Level of Care Code Acute Child & Adolescent Psychiatrist for [facility] Fwd Diagnoses Acute appendicitis K35.80 CAD (coronary artery disease) I25.10 COPD (chronic obstructive pulmonary disease) J44.9 COPD type: unspecified COPD Diabetes E11.9 Hx pulmonary embolism Z86.711 HTN (hypertension) I10
[2021-10-03] MEDS: piperacillin-tazobactam 3.375 GM in sodium chloride 0.9% (plus) 50 ML IV ×2 (09:30→17:00)
[2021-10-03] MEDS: HYDROcodone-acetaminophen 5-325 mg Tablet 1 TAB PO ×3 (09:30→21:25)
[2021-10-03] MEDS: tamsulosin 0.4 mg Capsule PO ×2 (09:56→17:43)
--- NOTE | 2021-10-03 10:05 | PC.CHAP ---
Pastoral Care Encounter/Spiritual Assessment Type of Contact [] Declined backfiller visit [] Patient/Family/Request visit [] Outpatient visit [] Follow-up visit [] Physician referral [] Code/Alert [x] Routine visit [] Staff referral [] Actively dying [] Patient sleeping [] Family support [] [] Out of room [] Palliative care [] [] Receiving care in room [] Pre-surgical visit [] Trauma [] Long length of stay [] ICU visit [] Other: Relational/Emotional Strength [x] Patient feels connected with others/family/visitors/staff [] Distress [] Loneliness/isolation [] Abandonment Spirituality of Patient [] Person of Lorna [] Attends Church of their Lorna [] Believes in Prayer [] Reads Bible or Rastafari materials [x] There are Spiritual issues to be addressed Accreditation Manager Interventions [] Prayer [x] Active listening [x] Non-anxious presence [x] Spiritual/emotional support [] Crisis/trauma care [] Spiritual counseling [] Bereavement support [] Provided bereavement packet [] Provided Bible/devotional materials [] Provided toy/stuffed animal, coloring book to patient or family member [] Provided Communion [] Anointing/[place] [] Salvation [x] Completed spiritual assessment [] Other: Impact on Illness or Injury [] Angry [] Fearful [] Anxious [] Often cries [] Exhaustion [] Unable to work [] Unable to attend confucianism [] Unable to walk/stand [] Unable to read [] Unable to drive [] Unable to eat/drink [] Unable to sleep [] Unable to be with family [] Patient intubated [] Other: Summary Upon introduction Pt was somewhat resistive to speaking. However, Accreditation Manager spoke about non muslim things and Pt became more comfortable. Pt is from around the [facility]. He lives alone in a trailer home next door to family. He has two children, a son and a daughter. The son lives away from the area and has worked as a driller for [employer]. 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 He is now retired and has had heart issues but this is not what he is currently in the hospital for. Time spent with patient 10m
[2021-10-03 11:47] LABS: Glucose Point of Care 173 mg/dL (70-110)
[2021-10-03] MEDS: insulin lispro 100 unit/1 mL SUBCUT ×3 (12:04→21:25)
[2021-10-03 17:20] LABS: Glucose Point of Care 171 mg/dL (70-110)
[2021-10-03 21:20] LABS: Glucose Point of Care 171 mg/dL (70-110)
[2021-10-04] VITALS: BP 99/63; PULSE 59; RESP 18; TEMP 36.6; O2SAT 96
[2021-10-04] MEDS: sodium chloride 0.9% 1,000 ML 100 ML IV (00:20)
[2021-10-04] MEDS: piperacillin-tazobactam 3.375 GM in sodium chloride 0.9% (plus) 50 ML IV ×2 (00:20→08:33)
[2021-10-04 02:12] LABS: Basophils % 0.2 %; Eosinophils # 0.4 10^3/uL (0.0-0.8); Eosinophils % 3.7 %; Hemoglobin 11.9 g/dL (11.7-16.6); Lymphocytes # 3.2 10^3/uL (0.8-4.8); Lymphocytes % 31.2 %; Mean Corpuscular HGB Conc 33.1 g/dL (30.0-36.0); Mean Corpuscular Hemoglobin 32.6 pg (28.0-34.0); Mean Corpuscular Volume 98.6 fl (80-94); Mean Platelet Volume 11.6 fL (7.4-10.4); Monocytes # 0.7 10^3/uL (0.2-0.9); Monocytes % 6.4 %; Neutrophils # 5.92 10^3/uL (1.8-7.7); Neutrophils % 58.2 %; Nucleated Red Blood Cells % 0 %; Platelet Count 125 10^3/cmm (130-400); Red Blood Count 3.65 10^6/uL (4.1-5.3); Red Cell Distribution Width 14.8 % (12.1-15.1); White Blood Count 10.2 10^3/uL (4.0-10.0)
[2021-10-04 02:33] LABS: Blood Urea Nitrogen 15 mg/dL (8-23); Calcium 8.3 mg/dL (8.5-10.5); Carbon Dioxide 27 mmol/L (22-29); Chloride 105 mmol/L (98-107); Glucose 139 mg/dL (65-115); Osmolality Calculated 285 mOsm/kg (285-295); Sodium 136 mmol/L (136-145)
[2021-10-04 02:44] LABS: Anion Gap 8.4 (5-19); Potassium 4.4 mmol/L (3.5-5.1)
[2021-10-04] MEDS: carvedilol 6.25 mg Tablet PO (03:17)
[2021-10-04] MEDS: famotidine 20 mg/2 mL INJ IVP (03:17)
[2021-10-04 04:00] VITALS: BP 100/60; PULSE 63; RESP 19; TEMP 36.7; O2SAT 91
[2021-10-04] MEDS: heparin 5,000 unit/mL INJ 1 mL 5000 UNIT SUBCUT (05:22)
[2021-10-04] MEDS: lisinopril 20 mg Tablet PO (05:24)
[2021-10-04] MEDS: finasteride 5 mg Tablet PO (05:24)
[2021-10-04] MEDS: aspirin 81 mg EC Tablet PO (05:24)
--- NOTE | 2021-10-04 05:53 | PC.NURSE ---
PATIENT ENCOURAGED TO GET OUT OF BED AT THIS TIME. PATIENT STATED HE WOULD WHEN HIS BREAKFAST CAME.
[2021-10-04 06:14] LABS: Glucose Point of Care 155 mg/dL (70-110)
[2021-10-04 07:25] VITALS: BP 154/86; PULSE 69; RESP 13; O2SAT 91
[2021-10-04] MEDS: budesonide 0.5 mg/2 mL Neb INHALATION (08:20)
[2021-10-04] MEDS: ipratropium-albuterol 3 mL Neb INHALATION (08:20)
[2021-10-04 08:21] VITALS: PULSE 69; RESP 16; O2SAT 96
[2021-10-04 08:30] VITALS: PULSE 70; RESP 16; O2SAT 96
[2021-10-04] MEDS: tamsulosin 0.4 mg Capsule PO (08:33)
[2021-10-04] MEDS: insulin lispro 100 unit/1 mL SUBCUT ×2 (08:34→12:35)
--- NOTE | 2021-10-04 10:39 | PM.DCS ---
Discharge Providers Date of Admission: 10/03/21 07:31 Date of Discharge: October 04, 2021 Attending Provider at Admission: Maurizio Oates MD Attending Provider at Discharge: Maurizio Oates MD Consults: Dr. Edward Aranda Primary Care Provider: HARLEY Manning Diagnoses at Discharge Discharge Diagnosis (1) Acute appendicitis: (2) CAD (coronary artery disease): Details from hospital stay: Medical management to continue upon discharge (3) COPD (chronic obstructive pulmonary disease): Details from hospital stay: Continue medical management Qualifiers: COPD type: unspecified COPD Qualified Code(s): J44.9 - Chronic obstructive pulmonary disease, unspecified (4) Diabetes: Details from hospital stay: Continue medical management (5) Hx pulmonary embolism: Details from hospital stay: Patient has been off blood thinners (6) HTN (hypertension): Details from hospital stay: Medical management Reason for Visit Reason for Visit: ABDOMINAL PAIN Brief History: Mr.Freddie Zelalem Lucas is a 71 year old male with acute onset of abdominal pain over the past 3 days particularly towards the right lower quadrant associated with nausea and vomiting and chills.? As the pain got worse patient decided to come to the emergency department for further evaluation he denies any other constitutional symptoms.? Patient is well-known with history of diabetes mellitus type 2 on glipizide.? Further blood work showed a WBC count of 6.8, platelet count of 166, lactic acid of 1.7, creatinine of 0.9 and glucose 217.? Patient is well-known with history of prostate cancer with metastasis. Patient undergone a CT scan Of the abdomen and pelvis that showed; 1.? Findings compatible with acute appendicitis. Appendix extends anterior and cephalad with tip in the RIGHT midabdomen. 1 or 2 tiny locules of air about the appendix tip suspicious for microperforation. 2.? No evidence of drainable abscess or fluid collection. 3.? Small amount of free fluid in the pelvis. 4.? Markedly enlarged heterogeneous nodular prostate measuring 5.1 x 5.7 x 7.8 cm AP by transverse by craniocaudal. Recommend correlation PSA. Findings suspicious for neoplasia/hyperplasia 5.? Evidence of bladder outlet obstruction with diffuse bladder wall thickening. 6.? Incidental fat-containing umbilical hernia. 7.? Trace LEFT pleural fluid. Bibasilar atelectasis General surgery was consulted for further evaluation and potential intervention, patient reports that he had a colonoscopy about 5 to 6 years ago and was normal. Hospital Course Hospital Course Patient undergone uneventful laparoscopic appendectomy and was found to have perforated appendicitis with peritonitis, intra-abdominal drain was placed after the appendix was removed. Patient continued to have stable vital signs and adequate urine output. Diabetes mellitus was appropriately controlled per hospitalist service, patient continued to have stable vital signs. Started passing gas tolerating p.o. and met the appropriate criteria for discharge home. And appropriate drain teaching education was given to the patient and his fianc?e. Physical Exam Narrative: Patient is conscious alert oriented X3 No apparent distress BMI 25.1 Head and neck examination PERRLA no masses no cervical lymphadenopathy no jaundice Cardiac examination audible S1-S2 no murmurs no gallops no arrhythmias Chest is clear bilateral,abscence of Rhonchi or wheezes,no surgical emphysema Abdomen nontender except mildly at the incision sites nondistended soft no organomegaly guarding or rigidity/no signs of peritonitis, drain in place with serosanguineous output Extremities no cyanosis no clubbing no edema Discharge Data Studies Completed and Pending Completed Studies During Hospitalization Category Date Time Status CT abdomen pelvis w con* [id number] Stat Cat Scan 10/02/21 08:13 Completed XR chest 1V portable [id number] Stat Exams 10/02/21 08:36 Completed Pending at discharge Category Date Time Status ES surgery / GI images Routine Exams 10/02/21 12:30 Taken Basic Metabolic Panel AM LABS Lab 10/05/21 04:00 Ordered Blood Culture Stat Lab 10/02/21 09:03 Results Complete Blood Count w/Auto AM LABS Lab 10/05/21 04:00 Ordered Pathology: Surgical [PTH] Routine Pth 10/02/21 14:17 Received Radiology Impressions Abdomen/Pelvis CT 10/02/21 08:13 IMPRESSION: 1. Findings compatible with acute appendicitis. Appendix extends anterior and cephalad with tip in the RIGHT midabdomen. 1 or 2 tiny locules of air about the appendix tip suspicious for microperforation. 2. No evidence of drainable abscess or fluid collection. 3. Small amount of free fluid in the pelvis. 4. Markedly enlarged heterogeneous nodular prostate measuring 5.1 x 5.7 x 7.8 cm AP by transverse by craniocaudal. Recommend correlation PSA. Findings suspicious for neoplasia/hyperplasia 5. Evidence of bladder outlet obstruction with diffuse bladder wall thickening. 6. Incidental fat-containing umbilical hernia. 7. Trace LEFT pleural fluid. Bibasilar atelectasis Notified Tahir Roth DO at 10/02/2021 10:19 AM. Chest X-Ray 10/02/21 08:36 IMPRESSION: No acute chest abnormality. Laboratory Results WBC 10.2 10^3/uL (4.0-10.0) H 10/04/21 01:55 RBC 3.65 10^6/uL (4.1-5.3) L 10/04/21 01:55 Hgb 11.9 g/dL (11.7-16.6) 10/04/21 01:55 Hct 36.0 % (42.0-52.0) L 10/04/21 01:55 MCV 98.6 fl (80-94) H 10/04/21 01:55 MCH 32.6 pg (28.0-34.0) 10/04/21 01:55 MCHC 33.1 g/dL (30.0-36.0) 10/04/21 01:55 RDW 14.8 % (12.1-15.1) 10/04/21 01:55 Plt Count 125 10^3/cmm (130-400) L 10/04/21 01:55 MPV 11.6 fL (7.4-10.4) H 10/04/21 01:55 Neut % (Auto) 58.2 % 10/04/21 01:55 Lymph % (Auto) 31.2 % 10/04/21 01:55 [place] % (Auto) 6.4 % 10/04/21 01:55 Eos % (Auto) 3.7 % 10/04/21 01:55 Baso % (Auto) 0.2 % 10/04/21 01:55 Neut # (Auto) 5.92 10^3/uL (1.8-7.7) 10/04/21 01:55 Lymph # (Auto) 3.2 10^3/uL (0.8-4.8) 10/04/21 01:55 [place] # (Auto) 0.7 10^3/uL (0.2-0.9) 10/04/21 01:55 Eos # (Auto) 0.4 10^3/uL (0.0-0.8) 10/04/21 01:55 Baso # (Auto) 0.0 10^3/uL (0.0-0.1) 10/04/21 01:55 Nucleated RBC % (auto) 0 % 10/04/21 01:55 Total Counted 100 (0-100) 10/03/21 03:57 Atypical Lymphs % 1.0 % (0-5) 10/03/21 03:57 Absolute Neutrophils 8.3 10^3/cmm (1.4-6.5) H 10/03/21 03:57 Segmented Neutrophils 68 % 10/03/21 03:57 Abs Segm Neuts (Man) 7.0 10/cmm (1.6-7.1) 10/03/21 03:57 Band Neutrophils 13.0 % 10/03/21 03:57 Abs Band Neuts (Man) 1.3 10^3/cmm (0.0-1.2) H 10/03/21 03:57 Absolute Lymphocytes 1.9 10^3/cmm (1.2-3.4) 10/03/21 03:57 Lymphocytes (Manual) 17 % 10/03/21 03:57 Monocytes (Manual) 1.0 % 10/03/21 03:57 Absolute Monocytes 0.1 10^3/cmm (0.1-0.6) 10/03/21 03:57 Eosinophils (Manual) 0 % 10/03/21 03:57 Absolute Eosinophils 0.0 10^3/cmm (0.0-0.7) 10/03/21 03:57 Basophils (Manual) 0.0 % 10/03/21 03:57 Absolute Basophils 0.0 10^3/cmm (0.0-0.2) 10/03/21 03:57 Nucleated RBCs # 0.0 /100WBC 10/04/21 01:55 Platelet Estimate Decreased (Normal) 10/03/21 03:57 Sodium 136 mmol/L (136-145) 10/04/21 01:55 Potassium 4.4 mmol/L (3.5-5.1) 10/04/21 01:55 Chloride 105 mmol/L (98-107) 10/04/21 01:55 Carbon Dioxide 27 mmol/L (22-29) 10/04/21 01:55 Anion Gap 8.4 (5-19) 10/04/21 01:55 BUN 15 mg/dL (8-23) 10/04/21 01:55 Creatinine 0.9 mg/dL (0.7-1.2) 10/04/21 01:55 GFR Calculation Not Reportable 10/04/21 01:55 Glucose 139 mg/dL (65-115) H 10/04/21 01:55 POC Glucose 155 mg/dL (70-110) H 10/04/21 06:05 Calculated Osmolality 285 mOsm/kg (285-295) 10/04/21 01:55 Lactic Acid 1.7 mmol/L (0.5-2.2) 10/02/21 08:20 Calcium 8.3 mg/dL (8.5-10.5) L 10/04/21 01:55 Magnesium 2.0 mg/dL (1.7-2.3) 10/03/21 03:57 Total Bilirubin 0.6 mg/dL (0.15-1.2) 10/03/21 03:57 AST 28 U/L (0-40) 10/03/21 03:57 ALT 23 U/L (0-41) 10/03/21 03:57 Alkaline Phosphatase 44 IU/L (40-130) 10/03/21 03:57 Total Protein 5.6 g/dL (6.6-8.7) L 10/03/21 03:57 Albumin 2.8 g/dL (3.5-5.2) L 10/03/21 03:57 Globulin 2.8 g/dL (1.3-4.6) 10/03/21 03:57 Lipase 26 U/L (13-60) 10/02/21 08:20 Urine Color Dark yellow (Yellow) 10/02/21 08:56 Urine Appearance Clear (CLEAR) 10/02/21 08:56 Urine pH 7 (5-7) 10/02/21 08:56 Ur Specific [place] 1.015 (1.005-1.030) 10/02/21 08:56 Urine Protein 1+ (Negative) H 10/02/21 08:56 Urine Glucose (UA) 1+ (Normal) H 10/02/21 08:56 Urine Ketones 2+ (Negative) H 10/02/21 08:56 Urine Blood Neg (Negative) 10/02/21 08:56 Urine Nitrate Negative (Negative) 10/02/21 08:56 Urine Bilirubin 1+ (Negative) H 10/02/21 08:56 Urine Urobilinogen 8 mg/dL (Negative) H 10/02/21 08:56 Ur Leukocyte Esterase Negative (Negative) 10/02/21 08:56 Urine RBC None /hpf (0-2) 10/02/21 08:56 Urine WBC 0-4 /hpf (0-5) H 10/02/21 08:56 Ur Squamous Epith Cells 0-4 /hpf (0-5) H 10/02/21 08:56 Amorphous Sediment Not Reportable 10/02/21 08:56 Urine Bacteria 1+ /hpf (NONE) H 10/02/21 08:56 Hyaline Casts 0-4 /lpf H 10/02/21 08:56 Urine Mucus 1+ /hpf 10/02/21 08:56 Additional Data from Hospital Stay (2) CAD (coronary artery disease): Patient with no significant cardiac symptoms since bypass surgery in 2019 Continue his regular medicines of aspirin, carvedilol.? He is intolerant of statins ?Status:?Acute (3) COPD (chronic obstructive pulmonary disease): Encourage smoking cessation as he has ongoing tobacco dependency Offered nicotine patch which he refused Continue DuoNeb every 6 hours, budesonide Incentive spirometry will be appropriate following surgery ?Status:?Acute ?Qualifiers: ?COPD type:?unspecified COPD? Qualified Code(s):?J44.9 - Chronic obstructive pulmonary disease, unspecified (4) Diabetes: ConsistentMild sliding scale insulin Diet, when allowed to have p.o. ?Status:?Acute (5) Hx pulmonary embolism: Past history of pulmonary embolism associated with coronary artery bypass grafting.? Currently not on anticoagulation. Recommend DVT prophylaxis anticoagulation, following surgery ?Status:?Acute (6) HTN (hypertension): Continue home medications ?Status:?Acute Procedures Performed 1-Laparoscopic appendectomy and intra-abdominal drain placed 2-laparoscopic umbilical hernia repair without mesh Vitals Last Vital Signs Temp 98.0 F 10/04/21 04:00 Pulse 70 10/04/21 08:30 Resp 16 10/04/21 08:30 BP 154/86 10/04/21 07:25 Pulse Ox 96 10/04/21 08:30 Discharge Plan Discharge Patient Disposition: Home Condition: Stable Prescriptions: New Cipro 500 mg tablet 500 mg PO Q12H 10 Days Qty: 20 0RF metronidazole 500 mg tablet 500 mg PO TID 10 Days Qty: 30 0RF hydrocodone-acetaminophen 5-325 mg tablet 1 tab PO Q6H PRN (Reason: pain) Qty: 28 0RF Continued multivitamin Tablet 1 tab PO DAILY 0RF carvedilol 6.25 mg tablet 6.25 mg PO Q12H Qty: 180 3RF glipizide 10 mg tablet extended release 24hr 10 mg PO QAM 0RF lisinopril 20 mg tablet 20 mg PO QAM 0RF aspirin 81 mg tablet,delayed release (DR/EC) 81 mg PO QAM 0RF tamsulosin 0.4 mg capsule 0.4 mg PO BID 0RF Ventolin HFA 90 mcg/actuation HFA aerosol inhaler 2 puff inhalation Q4H PRN (Reason: Shortness Of Breath) 0RF finasteride 5 mg tablet 5 mg PO QAM 0RF Incruse Ellipta 62.5 mcg/actuation blister with device 1 inh inhalation DAILY 0RF Discharge Orders: Discharge Order (Routine); Ordered 10/04/21 Ordered By: Maurizio Oates Referrals: Maurizio Oates MD [Physician] - 10/12/21 3:30 pm ( Return to surgery office in 10 days) Mana Heck FNP [Primary Care Provider] - 10/11/21 10:00 am Discharge Diet: Advance as tolerated Discharge Activity: Limit activity as instructed Patient Instructions: Ciprofloxacin (By mouth), Hydrocodone/Acetaminophen (By mouth), Metronidazole (By mouth), Rodrigo-Araiza Drain Care (GEN), Laparoscopic Appendectomy (GEN), Opioid Safety Activity Restrictions/Additional Instructions: 1. Patient can shower after 48 hours from surgery 2. Remove Dermabond 7 to 10 days after surgery, if there is a secondary dressing can take down after 48 hours. 3. Up and walking as tolerated 4. Do not lift more than 5 pounds first 2 weeks after surgery and not more than 25 pounds 6 to 8 weeks after surgery. 5. Do not operate heavy machinery or drive while using pain medications. 6.Contact the office or return to the ER for worsening nausea vomiting fevers or chills, or noticing any redness around incision sites or discharge. Discharge Attestations Time Spent in Discharge Care*: greater than 30 min Specific Discharge Activities: educating patient and educating and/or supporting family/caregiver Status at Discharge: Cognitive status at discharge: cognitively intact, Behavioral status at discharge: cooperative, Functional status at discharge: independent ambulation, Overall status at discharge: patient is progressing back to baseline Quality Metrics Clinical Quality Measures [ No reported AMI, CVA or VTE this stay] Coding Level of Care Code Acute Chg [facility] note Diagnoses Acute appendicitis K35.80 CAD (coronary artery disease) I25.10 COPD (chronic obstructive pulmonary disease) J44.9 COPD type: unspecified COPD Diabetes E11.9 Hx pulmonary embolism Z86.711 HTN (hypertension) I10
--- NOTE | 2021-10-04 10:58 | PM.PN ---
Subjective Subjective: Pito reports she is feeling okay. Is passing gas but has not yet had a bowel movement. No nausea, vomiting, or chest discomfort. Medications: Reviewed: Yes Vitals/I&O/Wt Last Vital Signs Temp 98.0 F 10/04/21 04:00 Pulse 70 10/04/21 08:30 Resp 16 10/04/21 08:30 BP 154/86 10/04/21 07:25 Pulse Ox 96 10/04/21 08:30 10/03/21 10/04/21 10/04/21 22:59 06:59 14:59 Intake Total 680 / 2690 1770 / 4460 420 / 420 Output Total 1060 / 1340 800 / 2140 15 / 15 Balance -380 / 1350 970 / 2320 405 / 405 Physical Exam Narrative: General exam no distress Neck is supple no lymphadenopathy or thyromegaly Cardiovascular tachycardic, no murmur. No S3 or S4 Lungs are clear to auscultation bilaterally. Diminished breath sounds are noted. No wheezes or crackles Abdomen has good bowel sounds. Not distended. Extremities no cyanosis clubbing or edema, cap refill brisk Skin no rash Data : 10/04/21 01:55 10/04/21 01:55 Micro: Microbiology 10/02/21 09:03 Blood Culture - Preliminary Blood Micrococcus Species Staphylococcus sp coag neg Streptococcus species 10/02/21 08:20 Blood Culture - Preliminary Blood NEGATIVE TO DATE A&P Assessment and plan (1) Acute appendicitis: Patient with right lower quadrant pain, fever, CT scan all consistent with acute appendicitis. Surgery performed appendectomy pain yesterday. He is postoperative day #2 status post laparoscopic appendectomy, with umbilical hernia repair as well He is on full liquid diet. He is doing well from the standpoint. Continue IV Zosyn. Note that appendix was perforated on surgical exploration, No fever since admission. Blood culture showing growth in 1 bottle, that is consistent with contaminant. No reason to repeat. Status: Resolved (2) CAD (coronary artery disease): Patient with no significant cardiac symptoms since bypass surgery in 2019 Continue his regular medicines of aspirin, carvedilol. He is intolerant of statins Status: Acute (3) COPD (chronic obstructive pulmonary disease): Encourage smoking cessation as he has ongoing tobacco dependency Offered nicotine patch which he refused Continue DuoNeb every 6 hours, budesonide Incentive spirometry will be appropriate following surgery Status: Acute Qualifiers: COPD type: unspecified COPD Qualified Code(s): J44.9 - Chronic obstructive pulmonary disease, unspecified (4) Diabetes: ConsistentMild sliding scale insulin Diet, when allowed to have p.o. Status: Acute (5) Hx pulmonary embolism: Past history of pulmonary embolism associated with coronary artery bypass grafting. Currently not on anticoagulation. Recommend DVT prophylaxis anticoagulation, following surgery Status: Acute (6) HTN (hypertension): Continue home medications Status: Acute Plan Full code SCDs currently for DVT prophylaxis, but will need pharmacologic anticoagulation following surgery Attestations Medical Necessity Statement*: As per primary Coding Level of Care Code Acute [facility] for [facility] Fwd Diagnoses Acute appendicitis K35.80 CAD (coronary artery disease) I25.10 COPD (chronic obstructive pulmonary disease) J44.9 COPD type: unspecified COPD Diabetes E11.9 Hx pulmonary embolism Z86.711 HTN (hypertension) I10
[2021-10-04 11:12] LABS: Glucose Point of Care 162 mg/dL (70-110)
[2021-10-04 12:57] VITALS: PULSE 70; RESP 16; O2SAT 96
== END 2021-10-04 12:57 | disposition home or self-care (01) | DRG 340 ==
LOC: ER 10:46 → OR 10:55 → MEDSURG 12:27
PROVIDERS: Internal Medicine; Admitting Provider Surgery; Emergency Provider Family Medicine; PCP Nurse Practitioner Family; Visit Provider Surgery
PROC: 0DTJ4ZZ Resection of Appendix, Percutaneous Endoscopic Approach (ICD-10-PCS; CPT 44970; principal; 2021-10-02 11:35)
DX: K35.32 Acute appendicitis with perforation, localized peritonitis, and gangrene, without abscess (principal); I25.10 Atherosclerotic heart disease of native coronary artery without angina pectoris; Z95.5 Presence of coronary angioplasty implant and graft; Z95.1 Presence of aortocoronary bypass graft; F17.210 Nicotine dependence, cigarettes, uncomplicated; I10 Essential (primary) hypertension; E11.9 Type 2 diabetes mellitus without complications; K59.00 Constipation, unspecified; Z86.711 Personal history of pulmonary embolism; J44.9 Chronic obstructive pulmonary disease, unspecified; C61 Malignant neoplasm of prostate; Z79.84 Long term (current) use of oral hypoglycemic drugs; Z79.82 Long term (current) use of aspirin; Z79.51 Long term (current) use of inhaled steroids
CPT/HCPCS: 36415; 36416; 71045; 74177; 80048; 80053; 81001; 82962; 83605; 83690; 83735; 85007; 85025; 87040; 87150; 87205; 88302; 88304; 93005; 94640; 96365; 96372; 96375; 99285; G0378; J0330; J1100; J1644; J1815; J2250; J2270; J2405; J2543; J2704; J2710; J3010; J3490; J7030; J7626; Q9967

== ENCOUNTER → 2021-10-11 13:55 | Outpatient (BNVA) | payer MEDICARE, MEDICAID, SELFPAY | PROVIDERS: PCP Nurse Practitioner Family; Visit Provider Surgery | DX: Z98.890 Other specified postprocedural states (principal) | CPT/HCPCS: 80053; 80061; 83036 ==

== ENCOUNTER → 2021-11-08 08:54 | Outpatient (BNVA) | payer MEDICARE, MEDICAID, SELFPAY | PROVIDERS: PCP Nurse Practitioner Family; Visit Provider Surgery | DX: Z98.890 Other specified postprocedural states (principal) ==

== ENCOUNTER → 2022-01-26 09:49 | Outpatient (BNVA) | payer MEDICARE, MEDICAID, SELFPAY | PROVIDERS: PCP Nurse Practitioner Family; Visit Provider Internal Medicine | DX: R07.89 Other chest pain (principal); Z78.9 Other specified health status; Z98.61 Coronary angioplasty status; Z86.711 Personal history of pulmonary embolism; I10 Essential (primary) hypertension; E11.9 Type 2 diabetes mellitus without complications; Z79.84 Long term (current) use of oral hypoglycemic drugs; I73.9 Peripheral vascular disease, unspecified; E78.5 Hyperlipidemia, unspecified; J44.9 Chronic obstructive pulmonary disease, unspecified; I25.10 Atherosclerotic heart disease of native coronary artery without angina pectoris; F17.210 Nicotine dependence, cigarettes, uncomplicated | CPT/HCPCS: 99213; 99214 ==

== ENCOUNTER 2022-04-09 09:05 | Outpatient (CLI) | payer MEDICARE, MEDICAID, SELFPAY ==
[2022-04-09 10:05] VITALS: BMI 25.0
--- NOTE | 2022-04-09 10:05 | ECG_ITS ---
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 Interpretive Statements NAME OF STUDY: LEXISCAN SESTAMIBI STRESS TEST INDICATION: [Chest Pain, ] Procedure: At the baseline, the blood pressure was 132/84 mmHg with a heart rate of 56 bpm. The electrocardiogram showed sinus bradycardia, normal axis with normal ST and T's. The Lexiscan was infused over a period of 20 seconds. A total of 0.4 mg of Lexiscan was infused. The stress phase was continued for a total of 5 minutes. Heart rate was at the end of stress phase was 91 bpm and a blood pressure of 157/88 mmHg. The EKG at the peak infusion revealed normal sinus rhythm with no significant ST-T wave changes. Sestamibi was injected 20 seconds after the Lexiscan infusion. Blood pressure at the end of recovery phase was 150/86 mmHg with a heart rate of 78 bpm. Conclusion: 1. Normal EKG response to Lexiscan infusion 2. No Lexiscan induced chest pain or cardiac arrhythmia. 3. Normal blood pressure and heart rate response. 4. Sestamibi/sestamibi perfusion scan pending; see separate report. Electronically Signed On 04-11-2022 10:15:54 CDT by Song Hedrick M.D. [id number]
--- NOTE | 2022-04-09 10:06 | NMCV_ITS ---
NM shmuel perf SPECT r/s* [id number] Pito Lucas Age: 72 Gender: M : 1950 Exam Date: 04/09/2022 11:52 Ordering Phys: Song Hedrick M.D ([email or web address]) Technologist: BEN Carrizales Exam Location: [facility] Indications: Chest pain STRESS TEST [facility] IMAGE PROTOCOL Rest/Stress 1 Lexiscan Day Radiopharmaceutical Dose (mCi) Administration Site Administered by Rest: Tc-99m 11.0 IV BEN Carrizales Sestamibi Stress:Tc-99m 31.4 IV BEN Carrizales Sestamibi Rest: 09-Apr-2022 30 Discovery 630 Stress: 09-Apr-2022 60 Discovery 630 0.4mg Lexiscan. Images obtained in supine and prone position. SPECT RESULTS Technical Quality: Excellent Raw Data Analysis: Normal Image Corrections: No attenuation or motion correction applied Summed Stress Score: 0 Summed Rest Score: 0 Summed Difference Score: 0 PERFUSION FINDINGS Small area of slightly decreased tracer uptake in the apical inferior wall region with no significant reversibility. FUNCTIONAL RESULTS (calculated via Gated SPECT) Stress Image LV EF (%): 40 Stress EDV (mL):116 TID: 1.21 Stress ESV (mL):70 FUNCTIONAL FINDINGS: Diffuse hypokinesia of the septum and LV apex. Elevated transient ischemic dilatation ratio 1.21 IMPRESSIONS 1. Myocardial perfusion imaging revealing fairly uniform myocardial tracer uptake with no significant perfusion abnormalities. 2. Diminished LV ejection fraction of 40%. 3. Diffuse hypokinesia of the septum in the LV apex 4. Mildly elevated LV cavity with an end-systolic volume of 70 ml 5. Elevated transient ischemic dilatation ratio of 1.21. This may suggest a balanced ischemia. Clinical correlation recommended. 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
[2022-04-09] MEDS: regadenoson 0.4 Mg/5 ml Syringe IVP (12:50)
[2022-04-09 13:05] VITALS: BP 150/86; PULSE 80
== END 2022-04-09 09:06 | disposition home or self-care (01) ==
LOC: CDL 09:08
PROVIDERS: PCP Nurse Practitioner Family; Visit Provider Internal Medicine
DX: R07.9 Chest pain, unspecified (principal); R94.39 Abnormal result of other cardiovascular function study
CPT/HCPCS: 78452; 93017; A9500; J2785

== ENCOUNTER → 2022-05-16 09:04 | Outpatient (BNVA) | payer MEDICARE, MEDICAID, SELFPAY | PROVIDERS: PCP Nurse Practitioner Family; Visit Provider Nurse Practitioner Family | DX: J01.90 Acute sinusitis, unspecified (principal); E11.9 Type 2 diabetes mellitus without complications; E78.5 Hyperlipidemia, unspecified; I10 Essential (primary) hypertension; R97.20 Elevated prostate specific antigen [PSA]; Z72.0 Tobacco use; J44.9 Chronic obstructive pulmonary disease, unspecified | CPT/HCPCS: 80053; 80061; 82043; 83036; 84443; 85025 ==

== ENCOUNTER → 2022-05-17 08:32 | Outpatient (BNVA) | payer MEDICARE, MEDICAID, SELFPAY | PROVIDERS: PCP Nurse Practitioner Family; Visit Provider Urology | DX: N40.1 Benign prostatic hyperplasia with lower urinary tract symptoms (principal); R97.20 Elevated prostate specific antigen [PSA]; N52.1 Erectile dysfunction due to diseases classified elsewhere; F17.210 Nicotine dependence, cigarettes, uncomplicated | CPT/HCPCS: 36415; 51741; 51798; 81003; 84153; 99213 ==

== ENCOUNTER → 2022-10-26 09:07 | Outpatient (BNVA) | payer MEDICARE, MEDICAID, SELFPAY | PROVIDERS: PCP Nurse Practitioner Family; Visit Provider Internal Medicine | DX: I25.10 Atherosclerotic heart disease of native coronary artery without angina pectoris (principal); Z72.0 Tobacco use; Z78.9 Other specified health status; Z98.61 Coronary angioplasty status; Z86.711 Personal history of pulmonary embolism; Z95.1 Presence of aortocoronary bypass graft; I10 Essential (primary) hypertension; E11.9 Type 2 diabetes mellitus without complications; I73.9 Peripheral vascular disease, unspecified; E78.5 Hyperlipidemia, unspecified; J44.9 Chronic obstructive pulmonary disease, unspecified; Z79.84 Long term (current) use of oral hypoglycemic drugs | CPT/HCPCS: 99214 ==

== ENCOUNTER → 2022-11-02 11:35 | Outpatient (BNVA) | payer MEDICARE, MEDICAID, SELFPAY | PROVIDERS: PCP Nurse Practitioner Family; Visit Provider Nurse Practitioner Family | DX: E11.9 Type 2 diabetes mellitus without complications (principal); E78.5 Hyperlipidemia, unspecified; J44.9 Chronic obstructive pulmonary disease, unspecified; N40.1 Benign prostatic hyperplasia with lower urinary tract symptoms; I10 Essential (primary) hypertension | CPT/HCPCS: 80053; 80061; 83036; 85025 ==

== ENCOUNTER → 2023-03-19 12:09 | Outpatient (BNVA) | payer MEDICARE, MEDICAID, SELFPAY | PROVIDERS: PCP Nurse Practitioner Family; Visit Provider Nurse Practitioner Family | DX: E11.9 Type 2 diabetes mellitus without complications (principal); M54.50 Low back pain, unspecified; G89.29 Other chronic pain; J44.9 Chronic obstructive pulmonary disease, unspecified; N40.1 Benign prostatic hyperplasia with lower urinary tract symptoms; E78.5 Hyperlipidemia, unspecified; I10 Essential (primary) hypertension | CPT/HCPCS: 80053; 80061; 83036; 84443; 85025 ==

== ENCOUNTER → 2023-08-13 13:10 | Outpatient (BNVA) | payer OTHER, MEDICAID, SELFPAY | PROVIDERS: PCP Nurse Practitioner Family; Visit Provider Internal Medicine Cardiovascular Disease | DX: E78.5 Hyperlipidemia, unspecified (principal); I10 Essential (primary) hypertension; Z86.711 Personal history of pulmonary embolism; Z72.0 Tobacco use; Z79.01 Long term (current) use of anticoagulants; Z78.9 Other specified health status; J44.9 Chronic obstructive pulmonary disease, unspecified; E11.51 Type 2 diabetes mellitus with diabetic peripheral angiopathy without gangrene; Z79.84 Long term (current) use of oral hypoglycemic drugs | CPT/HCPCS: 99214 ==

== ENCOUNTER → 2023-09-13 11:10 | Outpatient (BNVA) | payer OTHER, MEDICAID, SELFPAY | PROVIDERS: PCP Nurse Practitioner Family; Visit Provider Nurse Practitioner Family | DX: R97.20 Elevated prostate specific antigen [PSA] (principal) | CPT/HCPCS: 84153 ==

== ENCOUNTER → 2023-10-15 16:52 | Outpatient (BNVA) | payer OTHER, MEDICAID, SELFPAY | PROVIDERS: PCP Nurse Practitioner Family; Visit Provider Nurse Practitioner Family | DX: E11.9 Type 2 diabetes mellitus without complications (principal) | CPT/HCPCS: 80053; 80061; 83036; 84443; 85025 ==

== ENCOUNTER 2023-11-26 09:36 | Outpatient (CLI) | payer OTHER, MEDICAID, SELFPAY ==
--- NOTE | 2023-11-26 10:00 | CT_ITS ---
WS: [id number] LDCT LUNG CANCER SCREENING TECHNIQUE: Noncontrast CT of the chest with coronal and sagittal reformatted images. CLINICAL INFORMATION: F17.210 - Nicotine dependence, cigarettes, uncomplicated COMPARISON: None. DLP: 59.77 mGy.cm DIvol: Mean CTDIvol: 1.30 (mGy) All CT scans at [facility] use at least one of these dose optimization techniques: automat ed exposure control; mA and/or kV adjustment per patient size (includes targeted exams where dose is matched to clinical indication); or iterative reconstruction. FINDINGS: No suspicious pulmonary parenchymal normalities. Cardiomegaly. Prior CABG with sternotomy. Normal caliber thoracic aorta. Aortic calcification. Dense coronary calcification. No axillary lymphadenopathy. Enlarged anterior mediastinal and parabronchial lymph nodes similar to 2019 likely reactive. Partially visualized adrenal glands appear normal. Normal GE junction. Mild thoracic curve. Moderate spondylitic changes thoracic spine. Subsegmental atelectasis RIGHT lower lobe. CT/CT lung screening [id number] IMPRESSION: LUNG-RADS: 2-Benign Appearance or Behavior FOLLOW UP: 12 Month: Continue annual screening with LDCT
== END 2023-11-26 09:37 | disposition home or self-care (01) ==
LOC: RAD 09:36
PROVIDERS: PCP Nurse Practitioner Family; Visit Provider Nurse Practitioner Family
DX: Z12.2 Encounter for screening for malignant neoplasm of respiratory organs (principal); F17.210 Nicotine dependence, cigarettes, uncomplicated; R59.9 Enlarged lymph nodes, unspecified; Z98.890 Other specified postprocedural states; G31.89 Other specified degenerative diseases of nervous system; J98.11 Atelectasis
CPT/HCPCS: 71271

== ENCOUNTER → 2024-02-05 16:00 | Outpatient (BNVA) | payer OTHER, MEDICAID, SELFPAY | PROVIDERS: PCP Nurse Practitioner Family; Visit Provider Nurse Practitioner Family | DX: E11.65 Type 2 diabetes mellitus with hyperglycemia (principal) | CPT/HCPCS: 80053; 80061; 83036; 85025 ==

== ENCOUNTER → 2024-03-03 15:39 | Outpatient (BNVA) | payer OTHER, MEDICAID, SELFPAY | PROVIDERS: PCP Nurse Practitioner Family; Visit Provider Internal Medicine Cardiovascular Disease | DX: I73.9 Peripheral vascular disease, unspecified (principal); E78.5 Hyperlipidemia, unspecified; I10 Essential (primary) hypertension; Z86.711 Personal history of pulmonary embolism; Z78.9 Other specified health status | CPT/HCPCS: 99213 ==

== ENCOUNTER → 2024-09-01 14:46 | Outpatient (BNVA) | payer OTHER, MEDICAID, SELFPAY | PROVIDERS: PCP Nurse Practitioner Family; Visit Provider Internal Medicine Cardiovascular Disease | DX: I25.10 Atherosclerotic heart disease of native coronary artery without angina pectoris (principal); E78.5 Hyperlipidemia, unspecified; I73.9 Peripheral vascular disease, unspecified; I10 Essential (primary) hypertension; Z86.711 Personal history of pulmonary embolism; Z72.0 Tobacco use; Z79.01 Long term (current) use of anticoagulants; E11.65 Type 2 diabetes mellitus with hyperglycemia; Z79.84 Long term (current) use of oral hypoglycemic drugs | CPT/HCPCS: 99214 ==

== ENCOUNTER → 2024-10-28 14:43 | Outpatient (BNVA) | payer OTHER, MEDICAID, SELFPAY | PROVIDERS: PCP Nurse Practitioner Family; Visit Provider Nurse Practitioner Family | DX: E11.65 Type 2 diabetes mellitus with hyperglycemia (principal); I10 Essential (primary) hypertension; R97.20 Elevated prostate specific antigen [PSA] | CPT/HCPCS: 80053; 80061; 82043; 82607; 83036; 84153; 84443; 85025 ==

== ENCOUNTER → 2025-01-11 08:50 | Outpatient (BNVA) | payer OTHER, MEDICAID, SELFPAY | PROVIDERS: PCP Nurse Practitioner Family; Visit Provider Nurse Practitioner Family | DX: E11.65 Type 2 diabetes mellitus with hyperglycemia (principal); N52.1 Erectile dysfunction due to diseases classified elsewhere; I10 Essential (primary) hypertension | CPT/HCPCS: 80053; 80061; 82607; 83036; 84443; 85025 ==

== ENCOUNTER 2025-01-15 12:49 | Outpatient (CLI) | payer OTHER, MEDICAID, SELFPAY ==
--- NOTE | 2025-01-15 13:00 | CT_ITS ---
WS: [id number] LDCT LUNG CANCER SCREENING TECHNIQUE: Noncontrast CT of the chest with coronal and sagittal reformatted images. CLINICAL INFORMATION: F17.210 - Nicotine dependence, cigarettes, uncomplicated COMPARISON: CT 11/26/2023 DLP: 58.51 mGy.cm DIvol: Mean CTDIvol: 1.20 (mGy) All CT scans at [facility] use at least one of these dose optimization techniques: automated exposure control; mA and/or kV adjustment per patient size (includes targeted exams where dose is matched to clinical indication); or iterative reconstruction. FINDINGS: No new suspicious pulmonary parenchymal normalities. Subsegmental atelectasis RIGHT lower lobe. Cardiomegaly. Prior CABG with sternotomy. Normal caliber thoracic aorta. Aortic calcification. Dense coronary calcification. No axillary lymphadenopathy. Slightly prominent anterior mediastinal and parabronchial lymph nodes unchanged likely reactive. No axillary lymphadenopathy. Adrenal glands are normal. Distended stomach with food products. Hypertrophic changes thoracic spine. Thoracic curve and kyphosis. CT/CT lung screening [id number] IMPRESSION: LUNG-RADS: 2S-Benign Appearance or Behavior with Significant Findings Dense coronary calcification. Prior bypass grafting. Recommend cardiology follo w-up. FOLLOW UP: 12 Month: Continue annual screening with LDCT
== END 2025-01-15 12:50 | disposition home or self-care (01) ==
LOC: RAD 12:51
PROVIDERS: PCP Nurse Practitioner Family; Visit Provider Nurse Practitioner Family
DX: Z12.2 Encounter for screening for malignant neoplasm of respiratory organs (principal); J98.11 Atelectasis; F17.210 Nicotine dependence, cigarettes, uncomplicated
CPT/HCPCS: 71271

== ENCOUNTER 2025-01-26 15:20 | Inpatient (IN) | payer OTHER, MEDICAID, SELFPAY ==
--- OUTSIDE RECORDS SUMMARY | 2023-10-23 12:00 | XMS_ITS ---
Author Organization [facility], [facility] Address [address] [place] [address] Care Team Providers Care Research Assistant Member Name Role Phone Mana Heck Primary Care Provider JAMIE Hidalgo Unavailable [phone] Moreno Yeung Unavailable Unavailable REASON FOR VISIT Pt cx appt due to insurance not being in network/ w MRI Encounters Encounter Location Date Provider Diagnosis [facility], [facility] [address] [place] [address] 10/23/2023 JAMIE WOMACK Plan Of Treatment No Information Progress Notes * Kartik RAMIREZddie ADOB: [birth year] (74 yo M)Acc No.[id number]:10/23/2023 Progress Notes Patient: Pito AGUILAR Provider: Amy Womack APRN :1950 A ge:73 Y S ex:Male Date:10/23/2023 [id number] Pcp:Mana Heck Subjective: * Chief Complaints: * 1 . Pt cx appt due to insurance not being in network/ w MRI. * Medical History: Objective: * Vitals: Assessment: Plan: * Treatment: * Billing Information: * Visit Code: * Procedure Codes: * Electronic signature of ALLEN WOMACK APRN on 01/26/2025 at 03:28 PM CDT Sign off status: Pending * Provider: Amy Womack APRN Date: 0 10/23/2023 Generated for Printi ng/Faxing/eTransmitting on: 0 01/26/2025 03:28 PM CDT
[2025-01-26] VITALS (64 sets, daily range): BP systolic 78–114; BP diastolic 51–70; PULSE 53–80; RESP 11–33; TEMP 36.4–36.8; O2SAT 86–97; BMI 26.1
--- NOTE | 2025-01-26 15:24 | ECG_ITS ---
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 Measurements Intervals [place] Rate: 76 P: 37 NM: 270 QRS: -31 QRSD: 114 T: -28 QT: 398 QTc: 450 Interpretive Statements SINUS RHYTHM WITH FIRST DEGREE AV BLOCK LOW QRS VOLTAGE IN PRECORDIAL LEADS [QRS DEFLECTION < 1.0 mV IN CHEST LEADS] POSSIBLE ANTERIOR MYOCARDIAL INFARCTION , OF INDETERMINATE AGE [30 ms Q WAVE IN V3/V4, OR R < 0.2 mV IN V4] INFERIOR MYOCARDIAL INFARCTION , PROBABLY RECENT [40+ ms Q WAVE AND/OR ST/T ABNORMALITY IN II/aVF] ACUTE UT INTERPRETATION BASED ON A DEFAULT AGE OF 40 YEARS Compared to ECG 10/02/2021 08:24:14 Low QRS voltage now present Sinus tachycardia no longer present Myocardial infarct finding still present Electronically Signed On 01-28-2025 10:26:07 CDT by Song Hedrick M.D. [email or web address] [id number]
--- NOTE | 2025-01-26 15:24 | XACV_ITS ---
Exam Room: [facility] Ht: 173 cm Wt: 75 kg BSA: 1.90 m2 Gender: Male : 1950 Any Known Allergies: Other Exam Priority: Routine Procedure(s): Procedure Description: Diagnostic procedure Procedure Description: PCI procedure Procedure Description: Venous Graft Catheterization Procedure Description: Drug Eluting Coronary Stent Procedure Description: PTCA Procedure Description: Coronary Thrombectomy Procedure Description: Miscellaneous Procedure Description: ACT Procedure Description: Coronary Angiography Diagnostic Cath Status: Emergency Diagnostic Findings * Total thrombotic occlusion of SVG to RCA. This is culprit vessel for STEMI. s/p successful revascularization with manual thrombectomy and 3 stents placement. * Left main artery is patent. LAD is totally occluded. Left circumflex artery is patent. SVG to RCA is totally occluded. JUAREZ to LAD is patent. RCA has chronic total occlusion in proximal segment. * Coronary angiography shows right dominance. PCI Status: Emergency PCI Indication: Immediate PCI for STEMI Interventional Findings * Procedure detail:We engaged SVG to RCA with JR 4 guide catheter. We crossed totally occluded vessel with runthrough wire. We performed coronary thrombectomy with pronto catheter. We then predilated the vessel with 2.0x30 mm semicompliant balloon and 3.0x15 semicompliant balloon. We placed 3.0x34 mm Resolute nikole ERICK in distal vessel. We then placed a mid vessel 3.5x38mm resolute nikole ERICK. We then placed a third stent measuring 3.5x38mm in the proximal to mid SVG graft. At this time, final angiogram was performed that showed excellent stent expansion and no residual stenosis. Guidewire and guide catheter were removed. 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 Conclusions 1. Total thrombotic occlusion of SVG to RCA. This is culprit vessel for STEMI. s/p successful revascularization with manual thrombectomy and 3 stents placement. Recommendations * Dual antiplatelet therapy with aspirin and plavix. * Continue aggrastat for 6 hours. * Transfer to ICU. Interventional RX Recommendation: PCI w/o planned CABG Diagnostic RX Recommendation: PCI w/o planned CABG Anticoagulation: Heparin Pressures Phase:Rest AO : 119 / 59 ( 82 ) @ 4:48:00 PM 88 / 62 ( 75 ) @ 4:53:00 PM 95 / 62 ( 77 ) @ 5:00:00 PM Clinical Evaluation EBL: 5mL-10mL Procedural Details Pre-Procedure Time Out. Identified patient by full name and date of as verbalized by the patient/guarantor. Does the consent match the physician's order: Yes. Accurate & Complete Informed Consent: Yes. Inpatient/Outpatient History & Physical on Chart: Yes. If H&P is completed, is and addenduem needed: N/A Emergent; If yes, is the addendum complete: N/A Emergent. Visualize and Verify Site with Patient/Guarantor: N/A. Relevant Radiology Images available: N/A Emergent. The risks, benefits, and alternatives of sedation and/or procedure were discussed by physician. The patient agrees to continue. Procedure started. [facility] Clinical Fraility Score: 4: Vulnerable. Lap Cutter Indications: ACS <= 24 hours. Chest Pain Symptom Assessment: Typical Angina Symptoms. Correct patient, site and procedure confirmed by cath team. Current diagnosis: STEMI. Physician arrived. Baseline sample Acquired. HR: 96 BPM. PERRLA. Strong, equal hand backrest assembler bilaterally. Lungs clear x 5 lobes. IV Site on Arrival: 18 gauge in the right anticubital. IV Site on Arrival: 18 gauge in the left hand. IV Fluids: 0.9% NaCl at KVO. 0 mL infused prior to coreroom foundry laborer. Oxygen started at 2liters/min via nasal canula. Physician scrubbed in. Immediate Pre-Procedure Time Out. Correct Patient: Yes; Correct Procedure: Yes; Correct Site: Yes; Correct Patient Position: Yes; Correct Supplies: Yes; Dried Flammable Prep: Yes; Blood Products Available: N/A;. Lidocaine 1% infiltrated to the right groin. Current Diagnosis : STEMI. Arterial access obtained with micropuncture set. Contrast hand injected through the access needle. A 5 zambian JL4 catheter in over wire. Multiple views taken of left coronary artery. Catheter removed over the exchange wire. A 5 zambian JR4 catheter in over wire. SVG to RCA occluded. Multiple views taken of right coronary artery. Catheter removed over the exchange wire. 6 zambian JR 4 guide catheter was inserted over the wire. Runthrough guidewire was advanced through the guide catheter to lesion in the SVG to the prox RCA. Pronto catheter inserted OTW and advanced to the SVG to the RCA. Manual thrombectomy performed. Pronto catheter out OTW. Results checked. Pronto catheter inserted OTW and advanced to the SVG to the RCA. Manual thrombectomy performed. Pronto catheter out OTW. Results checked. Inflation number : 1 A AB MINI TREK 2.00X30 RX BALLOON was prepped and advanced across the Aorta Right -> Prox RCA , then inflated to 8 TISHA for 0:07 seconds. Inflation number: 2 The AB MINI TREK 2.00X30 RX BALLOON was reinflated across the Aorta Right -> Prox RCA, to 8 TISHA for 0:07 seconds. Inflation number: 3 The AB MINI TREK 2.00X30 RX BALLOON was reinflated across the Aorta Right -> Prox RCA, to 8 TISHA for 0:07 seconds. Balloon out. Results checked. PCI Indication: STEMI. PCI Indication : Immediate PCI for STEMI. Inflation number : 4 A AB TREK 3.00X15 RX BALLOON was prepped and advanced across the Aorta Right -> Prox RCA , then inflated to 8 TISHA for 0:10 seconds. Inflation number: 5 The AB TREK 3.00X15 RX BALLOON was reinflated across the Aorta Right -> Prox RCA, to 10 TISHA for 0:10 seconds. Balloon out. Results checked. Inflation number: 6 The AB MINI TREK 2.00X30 RX BALLOON was reinflated across the Aorta Right -> Prox RCA, to 4 TISHA for 0:05 seconds. Inflation number: 7 The AB MINI TREK 2.00X30 RX BALLOON was reinflated across the Aorta Right -> Prox RCA, to 4 TISHA for 0:06 seconds. Results checked. Inflation number: 8 The AB MINI TREK 2.00X30 RX BALLOON was reinflated across the Aorta Right -> Prox RCA, to 8 TISHA for 0:05 seconds. Inflation number: 9 The AB MINI TREK 2.00X30 RX BALLOON was reinflated across the Aorta Right -> Prox RCA, to 8 TISHA for 0:06 seconds. Balloon out. Results checked. Pronto catheter inserted OTW and advanced to the SVG to the RCA. Manual thrombectomy performed. Pronto catheter out OTW. Inflation Number : 10 A MDT R NIKOLE 3.0X34 ERICK -Lot Number# _[id number] EXP: 01/12/2027 was prepped and advanced across the Aorta Right -> Prox RCA. The stent was deployed at 12 TISHA for 0:16 seconds. Stent balloon out over wire. Inflation Number : 11 A MDT R NIKOLE 3.5X38 ERICK -Lot Number# _[id number] EXP: 11/03/2025 was prepped and advanced across the Aorta Right -> Prox RCA. The stent was deployed at 12 TISHA for 0:18 seconds. Stent balloon out over wire. Results checked. Inflation Number : 12 A MDT R NIKOLE 3.5X38 ERICK -Lot Number# _[id number] EXP: 11/18/2027 was prepped and advanced across the Aorta Right -> Prox RCA. The stent was deployed at 12 TISHA for 0:18 seconds. Stent balloon out over wire. Results checked. Wire out. Guide catheter out. A 5 zambian JR4 catheter in over wire. ACT drawn. Results out of range high seconds. Therapeutic limits - pre-heparin administration 90-150 seconds and monitoring heparin during a vascular procedure >250 seconds. Wire out. Glidewire inserted. JUAREZ to LAD visualized. Catheter removed over the standard wire. ACT drawn. Results 257 seconds. Therapeutic limits - pre-heparin administration 90-150 seconds and monitoring heparin during a vascular procedure >250 seconds. A Right femoral angiogram was performed to determine safe placement of closure device. A Suture was successful obtaining hemostatsis at the Right Femoral artery insertion site. Sheath(s) sutured into position with 2-0 silk and sterile 4x4's and Op-site applied over the site. No oozing or signs and symptoms of hematoma noted. Arterial sheath flushed and connected to tranducer and pressure bag with heparinized saline. Post Procedure: Pulses reassessed and unchanged. PERRLA. Strong, equal hand backrest assembler bilaterally. No VTE prophylaxis required. Vital chart was stopped. Medication's Wasted: Lidocaine 1% = 10 mL. Medication's Wasted: Other = Fentanyl 75 mcg. Total IV fluids: 600 mL. Post-op diagnosis: Stent to the RCA SVG. Complications: None. Estimated blood loss: 5mL-10mL. Responsiveness - Normal response to verbal stimuli; alert and oriented, PERRLA. Airway - Unaffected, no intervention required; spontaneous ventilation. Circulation: W/N/L, pulses unchanged. Nausea/Vomiting: No. Procedure completed. Patient transferred by bed to 1st floor. Access Site Site: Right Femoral artery Sheath Size: 6 Fr Hemostasis Method: Suture Hemostasis Success: Successful Procedure Medications Start: 3:38 PM Stop: 3:38 PM Medication: Versed 1 mg and Fentanyl 25 mcg Amount: 1 Route: I.V. Start: 3:48 PM Stop: 3:48 PM Medication: Versed Amount: 1 mg Route: I.V. Start: 3:49 PM Stop: 3:49 PM Medication: 0.9% Saline Amount: 250 ml Route: I.V. bolus Start: 3:51 PM Stop: 3:51 PM Medication: Heparin Amount: 4000 units Route: I.V. Start: 4:06 PM Stop: 4:06 PM Medication: Aggrastat 12.5 mg/250 mL Amount: 38 ml Route: I.V. bolus Start: 4:10 PM Stop: 4:10 PM Medication: Aggrastat 12.5 mg/250 mL Amount: 13.7 ml/hr Route: I.V. drip Start: 4:25 PM Stop: 4:25 PM Medication: 0.9% Saline Amount: 250 ml Route: I.V. bolus I, the attending physician, have reviewed and verified all procedure medications. Yes, all medications given per verbal order History/Risk Factors Hypertension: No Dyslipidemia: No Peripheral Arterial Disease (PAD): No Myocardial Infarction (VT): No Obesity: No Renal Disease: No Prior Interventions PCI: No CABG: No Valve Surgery: No Report Signatures Finalized by Song Hedrick MD on 01/31/2025 11:36 PM
--- NOTE | 2025-01-26 15:25 | ED_ITS ---
HPI - Chest Pain General: Chief Complaint: Chest Pain Stated Complaint: STEMI ALERT Time Seen by Provider: 01/26/25 15:24 Source: patient and EMS Mode of arrival: EMS Limitations: no limitations History of Present Illness: 74-year-old male had a history of barron ry artery disease states he started having chest pain this afternoon states it was a severe pain in the center of his chest that improved en route with EMS with nitro along with fentanyl his EKG with EMS does show a STEMI STEMI was alerted Project Manager Process Development is here. Patient states his pain is now down to 1 out of 10 denies any shortness of breath. Associated symptoms: Deny abdominal pain, dyspnea, fever(s), nausea or vomiting Related Data Home Medications ?Medication ?Instructions ?Recorded ?Confirmed aspirin 81 mg tablet,delayed 81 mg PO QAM 10/02/21 release Previous Rx's ?Medication ?Instructions ?Recorded blood-glucose meter (Blood Glucose #1 ea 10/24/23 Monitoring kit) lancets 31 gauge #100 ea 10/24/23 blood sugar diagnostic (SeeMeuch #50 strips 03/04/24 Ultra Test strips) lisinopril 20 mg tablet 20 mg PO DAILY #90 tabs 09/30 07/25 albuterol sulfate 90 mcg/actuation See Rx Instructions .Route 01/11/25 aerosol inhaler .COMPLEX #8.5 grams budesonide-formoterol HFA 160 See Rx Instructions .Rou te 01/11/25 mcg-4.5 mcg/actuation aerosol .COMPLEX #10.2 grams inhaler (Symbicort) carvedilol 6.25 mg tablet See Rx Instructions .Route 0 01/11/25 .COMPLEX #60 tabs finasteride 5 mg tablet See Rx Instructions .Route 0 01/11/25 .COMPLEX #30 tabs glipizide 10 mg tablet, extended See Rx Instructions . Route 01/11/25 release 24 hr .COMPLEX #60 tabs sitagliptin phosphate 25 mg tablet 25 mg PO DAILY #30 tabs 01/11/25 (Januvia) tamsulosin 0.4 mg capsule See Rx Instructions .Route 0 01/11/25 .COMPLEX #60 caps umeclidinium 62.5 mcg/actuation See Rx Instructions .R oute 01/11/25 blister powder for inhalation .COMPLEX #30 ea (Incruse Ellipta) empagliflozin 10 mg tablet 10 mg PO DAILY #30 tabs (Jardiance) Allergies Allergy/AdvReac Type Severity Reaction Status Date / Time ezetimibe (From Zetia) Allergy body aches Verified 01/12/25 10:58 Rdsatcw-FGU-EbW Reductase Allergy body aches Verified 01/12/25 10:58 Inhibitor Review of Systems Const: Denies: fever(s), chills, body aches or change in appetite ENMT: Denies: throat pain or dental pain Card: Reports: chest pain Resp: Denies: dyspnea GI: Denies: abdominal pain, nausea, vomiting or diarrhea Musc: Denies: neck pain or back pain Skin/Breast: Denies: rash Neuro: Denies: headache(s) PFSH ED PFSH: Medical History Enrolled in chronic care management Constipation Acute appendicitis Elevated PSA BPH (benign prostatic hyperplasia) Anticoagulation adequate with anticoagulant therapy Statin intolerance Tobacco abuse Hx pulmonary embolism Diabetes HTN (hypertension) PAD (peripheral artery disease) Dyslipidemia COPD (chronic obstructive pulmonary disease) BPH loc w urin obs/LUTS CAD (coronary artery disease) Surgical History History of appendectomy S/P PTCA (percutaneous transluminal coronary angioplasty) S/P CABG (coronary artery bypass graft) Family History Father , at age 82 Diabetes Mother , at age 58 Diabetes Social History Smoking and tobacco/nicotine status: current every day tobacco/nicotine user (1 PPD) cigarettes Packs smoked per day: 1 Years cigarettes smoked: 60 Second hand smoke exposure: Yes Alcohol intake: current Alcohol intake frequency: few times a week Alcohol type: hard liquor Substance/Drug Use: never Caregiver/support person: Yes Lives independently: Yes Household members: spouse Housing: House Marital status: / Current occupational status: retired Current gender identity: Male Special jaison needs: No Agree to transfusion: Yes Physical Exam Const: COMMON NORMALS: no acute distress, patient oriented x3 and healthy appearing HENMT: COMMON NORMALS: normocephalic and atraumatic HEAD & SCALP: normocephalic and atraumatic Eye: COMMON NORMALS: conjunctivae normal CONJUNCTIVA: Yes conjunctivae normal Neck/C-Spine: COMMON NORMALS: full ROM and supple Chest: COMMONS NORMALS: normal inspection of the chest Resp: COMMON NORMALS: normal respiratory effort, No retractions, No use of accessory muscles and clear to auscultation bilaterally AUSCULTATION: clear to auscultation bilaterally Cardio: COMMON NORMALS: regular rate, regular rhythm and No murmurs present (Cardio) RATE: regular rate RHYTHM: regular rhythm Extremity: COMMON NORMALS: normal to inspection and full ROM Neuro: COMMON NORMALS: patient oriented x3, moves all extremities and no focal motor deficits Psych: COMMON NORMALS: mental status grossly normal, Normal thought process present and cooperative THOUGHT PROCESS: Normal thought process present Skin: COMMON NORMALS: no rashes or lesions noted and no wounds GENERAL SKIN EXAM: no rashes or lesions noted Course Vital Signs: Vital signs: Vital Signs Temperature 97.6 F 01/26/25 15:21 Pulse Rate 80 01/26/25 15:21 Respiratory Rate 20 H 01/26/25 15:21 Blood Pressure 114/70 01/26/25 15:21 Pulse Oximetry 92 01/26/25 15:21 Oxygen Delivery Me thod Room Air 01/26/25 15:21 MDM - Chest Pain Medical Decision Making Patient presents here with ST elevation NH manager facility is here in the room has taken patient to Project Manager Process Development at this time. Medical Records I reviewed the patient's medical records. No radiology studies performed this visit EKG Data EKG 1: I personally reviewed and interpreted this EKG as follows: EKG interpretation date: 01/26/25 EKG interpretation time: 15:23 Interpretation: nsr hr 76 st elevation iii, avf stemi qrs 114 qtc 429 Discharge Plan Discharge Patient Disposition: Admitted As Inpatient Clinical Impression: ST elevation myocardial infarction (STEMI) Condition: Stable Coding Level of Care Code ED Glass Fitter for Humaira Hartmann
[2025-01-26] MEDS: heparin 5,000 unit/mL INJ 1 mL 4000 UNIT IVP (15:28)
--- OUTSIDE RECORDS SUMMARY | 2025-01-26 15:28 | XMS_ITS | Patient Health Record ---
Author Organization [employer] [employer] Address [address] [place] [address] Care Team Providers Care Batch Records Clerk Name Role Phone Mana Heck Primary Care Provider JAMIE Hidalgo Unavailable [phone] Moreno Yeung Unavailable Unavailable Allergies No Known Allergies Reason For Referral No Information Medications Medication SIG (Take, Route, Frequency, Duration) Notes Start Date End Date Status glipiZIDE 10 MG 1 tablet 30 minutes before breakfast Orally Once a day Active Aspir-81 Active Lisinopril 20 MG 1 tablet Orally Once a day Active Carvedilol 6.25 MG 1 tablet with food O rally Twice a day Active Tamsulosin HCl 0.4 MG 1 capsule Orally O nce a day for 30 days Active Albuterol Active Finasteride 5 MG 1 tablet Orally Once a day for 30 days Active Incruse Ellipta 62.5 MCG/ACT 1 puff Inhalation Once a day Active Social History Tobacco Use: Social History Observation Description Date Details (start date - stop date) Current Smoker NA - NA Tobacco Control (Standard) Question Answer Notes Tobacco use: Current smoker How often do you smoke cigarettes? Some days, bu t not every day Problems Problem Type SNOMED Code ICD Code Onset Dates Problem Status W/U Status Risk Notes Problem Lower urinary tract symptoms due to benign prostatic hypertrophy (42692276193715) Enlarged prostate with lower urinary tract symptoms (N40.1) Active confirmed Plan Of Treatment Pending Test Test Name Order Date PSA, TOTAL (5363) 09/09/2023 MRI Abdomen w/ + w/o Cont--[id number] Insurance Providers Payer Name Payer Address Payer Phone Subscriber Number Group Number Insured Name Patient Relationship to Insured Coverage Start Date Coverage End Date UHC Medicare Dual Complete PPO [address] [address] [place], [place] [phone] [phone] [id number] Pito Lucas Self - patient is the insured [place] Medicaid [address] [place], [place] [id number] [phone] [id number] Pito Lucas Self - patient is the insured Medical (General) History Medical History History ICD Code heart trouble bph Surgical History Surgery Date(Month/Year) open heart sx appendectomy cardiac stents
--- OUTSIDE RECORDS SUMMARY | 2025-01-26 15:28 | XMS_ITS | Clinical Summary ---
Author Organization [facility] de Address [address] [place] [address] Phone Care Team Providers Care State Archivist Name Role Phone Bradley Myles MD Primary Care Provider Unavailabl e Allergies No known active allergies Medications aspirin (MELBA) 325 mg Oral tablet Take 325 mg by mouth daily. Active carvedilol (COREG) 3.125 mg Oral tablet Take 3.125 mg by mouth 2 times daily with meals. Active prasugrel (EFFIENT) 10 mg Oral Tab Take 10 mg by mouth daily. 01/16/2010 Active pravastatin (PRAVACHOL) 40 mg Oral tablet Take 40 mg by mouth Daily LATE. Take two tabs in the evening Active silodosin (RAPAFLO) 8 mg Oral Cap Take 8 mg by mouth daily at bedtime. 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 Gender Identity Not on file Sexual Orientation Not on file Last Filed Vital Signs Vital Sign Reading Time Taken Comments Blood Pressure 114/76 03/01/2010 12:52 PM CDT Pulse 56 03/01/2010 12:52 PM CDT Temperature 36.9 C (98.5 F) 01/21/2010 11:15 AM CDT Respiratory Rate 24 03/01/2010 12:52 PM CDT Oxygen Saturation 96% 01/21/2010 11:15 AM CDT Inhaled Oxygen Concentration - - Weight 69.5 kg (153 lb 3.5 oz) 01/16/2010 9:20 A M CDT Height 172.7 cm (5' 8 ) 01/16/2010 9:20 AM CDT Body Mass Index 23.3 01/16/2010 9:20 AM CDT Plan of Treatment Health Maintenance Due Date Last Done Comments DTAP/TDAP/TD VACCINES (1 - Tdap) 1969 COLORECTAL SCREENING 1995 Colorectal Cancer Screening 1995 FIT-DNA Q 3 years 1995 FIT/FOBT Q 1 year 1995 Flex Sig/CT Colonography Q 5 years 1995 PNEUMOCOCCAL VACCINE 50+ YEARS (1 of 1 - PCV) 03/18/20 00 ZOSTER VACCINE (1 of 2) 2000 INFLUENZA VACCINE (#1) 2025 RSV VACCINE (60+ or ) (1 - 1-dose 75+ series) 2025 Insurance MEDICAID [place] Advance Directives For more information, please contact: [phone] * Full Code (Latest Code Status on File) Date Activated Date Inactivated Comments 01/20/2010 6:48 AM 01/21/2010 3:31 PM * Full Code Date Activated Date Inactivated Comments 01/16/2010 4:46 PM 01/20/2010 6:48 AM * Full Code Date Activated Date Inactivated Comments 01/16/2010 8:29 AM 01/16/2010 4:46 PM Care Teams State Archivist Relationship Specialty Start Date End Date Bradley Myles MD PCP - General Interventional Cardiology 01/16/10
--- OUTSIDE RECORDS SUMMARY | 2025-01-26 15:28 | XMS_ITS | Clinical Summary ---
Author Organization [facility] Address [address] [place]: Epic Prelude ADT FELISA SCHILLING [id number] Care Team Providers Care Parachute Line Tier Name Role Phone Bradley Myles MD Primary Care Provider Unavailabl e Allergies No known active allergies Active Problems Problem Noted Date Diagnosed Date PVD (peripheral vascular disease) with claudicat ion 01/18/2010 Encounters Date Type Department Care Team Description 01/13/2025 External Device Data [facility] ABSTRACTION Provider, Abstract 01/12/2025 External Device Data [facility] ABSTRACTION Provider, Abstract 12/29/2024 External Device Data [facility] ABSTRACTION Provider, Abstract 12/11/2024 Telephone [place] [address] [facility] [address], [address] [place] [phone] Oswaldo Guzman MD Question 12/01/2024 External Device Data [facility] ABSTRACTION Provider, Abstract 11/18/2024 External Device Data [facility] ABSTRACTION Provider, Abstract 11/17/2024 External Device Data [facility] ABSTRACTION Provider, Abstract from Last 3 Months Family History Medical History Relation Name Comments Heart Disease Brother Relation Name Status Comments Brother Social History Tobacco Use Types Packs/Day Years Used Date Smoking Tobacco: Former Cigarettes Q uit: 12/20/2009 Alcohol Use Standard Drinks/Week Comments Yes 1.7 (1 standard drink = 0.6 oz p ure alcohol) Sex and Gender Information Value Date Recorded Sex Assigned at Not on file 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 Gender Identity Not on file Sexual Orientation Not on file Plan of Treatment Upcoming Encounters Date Type Department Care Team (Late st Contact Info) Description 02/09/2025 11:45 AM CDT [facility] [address] [place] [phone] Oswaldo Guzman MD [address] [place] [phone] Health Maintenance Due Date Last Done Comments DTAP/TDAP/TD VACCINES (1 - Tdap) 1969 COLORECTAL SCREENING 1995 Colorectal Cancer Screening 1995 FIT-DNA Q 3 years 1995 FIT/FOBT Q 1 year 1995 Flex Sig/CT Colonography Q 5 years 1995 PNEUMOCOCCAL VACCINE 50+ YEARS (1 of 1 - PCV) 03/18/20 00 ZOSTER VACCINE (1 of 2) 2000 Medicare Advantage (CT) Prev entative Visit/Annual Wellness Visit 07/01/2024 INFLUENZA VACCINE (#1) 2025 RSV VACCINE (60+ or ) (1 - 1-dose 75+ series) 2025 Insurance MEDICAID [facility] DUAL COMPLETE HMO [facility] [id number] Care Teams Parachute Line Tier Relationship Specialty Start Date End Date Bradley Myles MD NO ADDRESS ON FILE PCP - General Interventional Cardiology 01/16/10
--- NOTE | 2025-01-26 15:33 | PM.HP ---
Providers/Chief Complaint Admitting Physician: Song Hedrick MD/ Cardiology Primary Care Provider: HARLEY Manning Chief Complaint: STEMI ALERT History of Present Illness Pito Lucas is a 74 year old male with past medical history of CAD status post CABG in 2019, diabetes, COPD who has presented with severe substernal chest pain. Per patient it started a few hours ago. Substernal with radiation to the left arm. On arrival to the hospital, chest pain has improved. EKG is showing ST elevation in inferior leads with ST depressions in leads V1 and V2. Review of Systems Card: Reports: chest pain Medications/Allergies Home Medications ?Medication ?Instructions ?Recorded ?Confirmed ?Last Taken ?Type aspirin 81 mg tablet,delayed 81 mg PO QAM 10/02/21 01/12/25 09/29/21 History release blood-glucose meter (Blood Glucose #1 ea 10/24/23 01/12/25 Unknown Rx Monitoring kit) lancets 31 gauge #100 ea 10/24/23 01/12/25 Unknown Rx blood sugar diagnostic (OneTouch #50 strips 03/04/24 01/12/25 Unknown Rx Ultra Test strips) lisinopril 20 mg tablet 20 mg PO DAILY #90 tabs 10/19/24 01/12/25 Unknown Rx albuterol sulfate 90 mcg/actuation See Rx Instructions .Route 01/11/25 01/12/25 Unknown Rx aerosol inhaler .COMPLEX #8.5 grams budesonide-formoterol HFA 160 See Rx Instructions .Route 01/11/25 01/12/25 Unknown Rx mcg-4.5 mcg/actuation aerosol .COMPLEX #10.2 grams inhaler (Symbicort) carvedilol 6.25 mg tablet See Rx Instructions .Route 01/11/25 01/12/25 Unknown Rx .COMPLEX #60 tabs finasteride 5 mg tablet See Rx Instructions .Route 01/11/25 01/12/25 Unknown Rx .COMPLEX #30 tabs glipizide 10 mg tablet, extended See Rx Instructions .Route 01/11/25 01/12/25 Unknown Rx release 24 hr .COMPLEX #60 tabs sitagliptin phosphate 25 mg tablet 25 mg PO DAILY #30 tabs 01/11/25 01/12/25 Unknown Rx (Januvia) tamsulosin 0.4 mg capsule See Rx Instructions .Route 01/11/25 01/12/25 Unknown Rx .COMPLEX #60 caps umeclidinium 62.5 mcg/actuation See Rx Instructions .Route 01/11/25 01/12/25 Unknown Rx blister powder for inhalation .COMPLEX #30 ea (Incruse Ellipta) empagliflozin 10 mg tablet 10 mg PO DAILY #30 tabs 01/12/25 01/12/25 Unknown Rx (Jardiance) Allergies Allergy/AdvReac Type Severity Reaction Status Date / Time ezetimibe (From Zetia) Allergy body aches Verified 01/12/25 10:58 Tlrhfgb-FPS-MxM Reductase Allergy body aches Verified 01/12/25 10:58 Inhibitor PFSH Acute PFSH: Medical History Enrolled in chronic care management Constipation Acute appendicitis Elevated PSA BPH (benign prostatic hyperplasia) Anticoagulation adequate with anticoagulant therapy Statin intolerance Tobacco abuse Hx pulmonary embolism Diabetes HTN (hypertension) PAD (peripheral artery disease) Dyslipidemia COPD (chronic obstructive pulmonary disease) BPH loc w urin obs/LUTS CAD (coronary artery disease) Surgical History History of appendectomy S/P PTCA (percutaneous transluminal coronary angioplasty) S/P CABG (coronary artery bypass graft) Family History Father , at age 82 Diabetes Mother , at age 58 Diabetes Social History Smoking and tobacco/nicotine status: current every day tobacco/nicotine user (1 PPD) cigarettes Packs smoked per day: 1 Years cigarettes smoked: 60 Second hand smoke exposure: Yes Alcohol intake: current Alcohol intake frequency: few times a week Alcohol type: hard liquor Substance/Drug Use: never Caregiver/support person: Yes Lives independently: Yes Household members: spouse Housing: House Marital status: / Current occupational status: retired Current gender identity: Male Special jaison needs: No Agree to transfusion: Yes Vitals/I&O/Wt Last Vital Signs Temp 97.6 F 01/26/25 15:21 Pulse 80 01/26/25 15:21 Resp 20 H 01/26/25 15:21 BP 114/70 01/26/25 15:21 Pulse Ox 92 01/26/25 15:21 O2 Del Method Room Air 01/26/25 15:21 Weight last 48 hrs Weight 172 lb Physical Exam Narrative: GENERAL: Patient is alert, awake and oriented x3. [] NECK: No jugular vein distension. [] HEENT: No cyanosis. No icterus. No pallor. [] HEART: Regular S1 and S2. Grade 2/6 systolic murmur LUNGS: Clear to auscultate bilaterally. [] CENTRAL NERVOUS SYSTEM: Grossly nonfocal. [] EXTREMITIES: Lower extremities with no edema bilaterally. Data 01/26/25 15:29 A&P Assessment and plan 1. ST elevation myocardial infarction (STEMI): 2. CAD (coronary artery disease): 3. PAD (peripheral artery disease): 4. HTN (hypertension): 5. Hx pulmonary embolism: Plan: Patient has presented with acute inferior wall ST elevation NE. We will proceed with coronary angiogram with possible PCI. Patient has been given aspirin. Loaded with Plavix and given heparin bolus. We will consult medicine team for management of medical issues. Will obtain echocardiogram postprocedure. PDMP PDMP Reviewed: Not Reviewed Attestations Medical Necessity Statement*: Care expected to cross 2 midnights. Patient has presented with acute inferior wall ST elevation NE and going for emergent cardiac catheterization with PCI. Coding Level of Care Code Acute Code for [facility] Diagnoses ST elevation myocardial infarction (STEMI) I21.3 CAD (coronary artery disease) I25.10 PAD (peripheral artery disease) I73.9 HTN (hypertension) I10 Hx pulmonary embolism Z86.711
[2025-01-26 15:38] LABS: Hematocrit 40.1 % (37-53); Hemoglobin 13.40 g/dL (11.27-16.99); Mean Corpuscular HGB Conc 33.4 g/dL (30-55); Mean Corpuscular Hemoglobin 31.8 pg (27-33); Mean Corpuscular Volume 95.2 fl (82-101); Nucleated Red Blood Cells % 0 %; Platelet Count 190 10^3/cmm (157-399); Red Blood Count 4.21 10^6/uL (3.85-5.65); White Blood Count 11.35 10^3/uL (3.29-11.43)
[2025-01-26 15:56] LABS: Alanine Aminotransferase 17 U/L (0-41); Albumin Level 3.3 g/dL (3.5-5.2); Alkaline Phosphatase 51 U/L (40-130); Blood Urea Nitrogen 18 mg/dL (8-23); Calcium 7.8 mg/dL (8.5-10.5); Carbon Dioxide 17 mmol/L (22-29); Chloride 104 mmol/L (98-107); Creatinine Clr Calc Pharmacy 82.7833; Globulin 2.5 g/dL (1.3-4.6); Glucose 175 mg/dL (65-115); Osmolality Calculated 290 mOsm/kg (285-295); Sodium 137 mmol/L (136-145); Total Protein 5.8 g/dL (6.6-8.7)
[2025-01-26 16:01] LABS: Troponin(5th) Baseline 630 ng/L (0-15)
[2025-01-26 16:02] LABS: Anion Gap 19.8 (5-19); Aspartate Amino Transferase 70 U/L (0-40); Potassium 3.8 mmol/L (3.5-5.1)
--- NOTE | 2025-01-26 16:50 | PM.PROC ---
Procedure Note: Date of procedure: 01/26/25 Pre-procedure diagnosis: STEMI Post-procedure diagnosis: other (Total thrombotic occlusion of SVG to RCA s/p PCI with 3 stents) Procedure: LAD and RCA are totally occluded. SVG to RCA is culprit vessel with total thrombotic occlusion. S/p successful revascularization with manual thrombectomy and 3 stents. Continue aggrastat for 6 hours. Aspirin and plavix for atleast 1 year Estimated blood loss (mL): 10 Complications: None Condition: stable Disposition: floor Coding Level of Care Code Acute Code for [facility]
--- NOTE | 2025-01-26 16:59 | USCV_ITS ---
Pito Lucas Age: 74 Gender: M : 1950 Exam Date: 01/26/2025 19:59 Ordering Phys: Song Hedrick M.D ([email or web address]) Technologist: MARSHA [place] [facility] [place]: STEMI BP: 114 / 70 HR: 55 Rhythm: Sinus bradycardia Technical Quality: Adequate MEASUREMENTS (Male / Female) Normal Values 2D ECHO LV Diastolic Diameter PLAX 4.2 cm 4.2 - 5.9 / 3.9 - 5.3 cm IVS Diastolic Thickness 2.3 cm 0.6 - 1.0 / 0.6 - 0.9 cm IVS Systolic Thickness 2.3 cm LVPW Diastolic Thickness 1.7 cm 0.6 - 1.0 / 0.6 - 0.9 cm LVPW Systolic Thickness 1.9 cm LVOT Diameter 2.4 cm LV Ejection Fraction 2D Teich 51.9 % LV Ejection Fraction MOD 4C 50.8 % LV Ejection Fraction MOD 2C 66.8 % LV Ejection Fraction 2C AL 70.6 % LA Diameter 4.1 cm Aorta at Sinotubular Diameter 3.3 cm IVC Diameter 2.4 cm M-MODE LA Ao Ratio MM 1.2 AV Cusp Separation MM 2.3 cm DOPPLER AV Peak Velocity 108.0 cm/s LVOT Peak Velocity 73.0 cm/s AV Area Cont Eq vti 2.8 cm squared AV Area Cont Eq pk 3.1 cm squared MV Peak Velocity 86.0 cm/s MV Area PHT 3.3 cm squared Mitral E to A Ratio 0.9 TR Peak Velocity 204.0 cm/s TR Peak Gradient 16.6 mmHg TV Peak E Velocity 44.0 cm/s FINDINGS Left Ventricle Normal left ventricular size, systolic function and wall thickness, with no regional wall motion abnormalities. Left ventricular ejection fraction is estimated at 60 %. Grade II/IV diastolic dysfunction, moderately elevated filling pressures. Right Ventricle The right ventricle is normal in size and function. Right Atrium The right atrium is normal in size. Left Atrium Mildly increased left atrial size. Mitral Valve Structurally normal mitral valve without significant stenosis or prolapse. There is no mitral regurgitation. Aortic Valve Structurally normal aortic valve without significant sclerosis or stenosis. There is no aortic regurgitation. Tricuspid Valve Structurally normal tricuspid valve without significant stenosis or regurgitation. Pulmonary artery systolic pressure is normal. Pulmonic Valve Structurally normal pulmonic valve without significant stenosis. There is no pulmonic regurgitation. Pericardium Normal pericardium without effusion. Aorta Normal ascending aorta dimension. IVC The inferior vena cava appears normal. CONCLUSIONS Normal left ventricular size, systolic function and wall thickness, with no regional wall motion abnormalities. Left ventricular ejection fraction is estimated at 60 %. Grade II/IV diastolic dysfunction, moderately elevated filling pressures. Mildly increased left atrial size. There is no pericardial effusion. Right atrial pressure is around 5 mm of mercury. Benny Dooley MD (Electronically Signed) Final Date: 27 January 2025 12:28 S
--- NOTE | 2025-01-26 17:09 | P.CONIM_ITS ---
Providers/Reason For Consult 2 Consulting Physician/Specialty*: Dr. Carrillo Reason for Consult*: Medical Management Requesting Physician: Dr. Hedrick Attending Physician: Song Hedrick M.D Primary Care Provider: HARLEY Manning History of Present Illness History of Present Illness Pito Lucas is a 74 year old male presenting with STEMI. PMHx is significant for prior stents and CABG as well as COPD and he is an ongoing smoker of 1PPD as well as boarderline diabetes. He was taken to the dental laboratory technician apprentice and had 3 stents placed. He denies having had much chest pain but described it as an ache over his chest wall. This has improved following PCI. He is started on ASA/plavix, has allergy to statin. Hospitalists consulted for medical management. Review of Systems 2 Const: Denies: fever(s), chills or body aches Eyes: Denies: change in vision ENMT: Denies: hoarseness Card: Reports: chest pain Resp: Denies: dyspnea GI: Denies: abdominal pain : Denies: dysuria, urinary urgency or urinary hesitancy Musc: Denies: neck pain or back pain Skin/Breast: Denies: rash or pruritus Neuro: Denies: headache(s) or numbness in extremities Psych: Denies: anxiety or depression Medications/Allergies Home Medications ?Medication ?Instructions ?Recorded ?Confirmed ?Last Taken ?Type aspirin 81 mg tablet,delayed 81 mg PO QAM 10/02/2109/29/21 History release blood-glucose meter (Blood Glucose #1 ea 10/24/2312/29 Unknown Rx Monitoring kit) lancets 31 gauge #100 ea 10/24/23 01/12/25 Un known Rx blood sugar diagnostic (OneTouch #50 strips 03/04/24 0 01/12/25 Unknown Rx Ultra Test strips) lisinopril 20 mg tablet 20 mg PO DAILY #90 tabs 09/3001/12/25 Unknown Rx albuterol sulfate 90 mcg/actuation See Rx Instructions .Route 01/11/25 01/12/25 Unknown Rx aerosol inhaler .COMPLEX #8.5 grams budesonide-formoterol HFA 160 See Rx Instructions .Rou te 01/11/25 01/12/25 Unknown Rx mcg-4.5 mcg/actuation aerosol .COMPLEX #10.2 grams inhaler (Symbicort) carvedilol 6.25 mg tablet See Rx Instructions .Route 0 01/11/25 01/12/25 Unknown Rx .COMPLEX #60 tabs finasteride 5 mg tablet See Rx Instructions .Route 0 01/11/25 01/12/25 Unknown Rx .COMPLEX #30 tabs glipizide 10 mg tablet, extended See Rx Instructions . Route 01/11/25 01/12/25 Unknown Rx release 24 hr .COMPLEX #60 tabs sitagliptin phosphate 25 mg tablet 25 mg PO DAILY #30 tabs 01/11/25 01/12/25 Unknown Rx (Januvia) tamsulosin 0.4 mg capsule See Rx Instructions .Route 0 01/11/25 01/12/25 Unknown Rx .COMPLEX #60 caps umeclidinium 62.5 mcg/actuation See Rx Instructions .R oute 01/11/25 01/12/25 Unknown Rx blister powder for inhalation .COMPLEX #30 ea (Incruse Ellipta) empagliflozin 10 mg tablet 10 mg PO DAILY #30 tabs 01/12/25 Unknown Rx (Jardiance) Allergies Allergy/AdvReac Type Severity Reaction Status Date / Time ezetimibe (From Zetia) Allergy body aches Verified 01/12/25 10:58 Ajmoycr-WHB-BiD Reductase Allergy body aches Verified 01/12/25 10:58 Inhibitor PFSH Acute 2 PFSH: Medical History (Updated 01/26/25 @ 17:16 by Srinivasa Carrillo MD) Enrolled in chronic care management Constipation Elevated PSA BPH (benign prostatic hyperplasia) Statin intolerance Tobacco abuse Hx pulmonary embolism Diabetes HTN (hypertension) PAD (peripheral artery disease) Dyslipidemia COPD (chronic obstructive pulmonary disease) BPH loc w urin obs/LUTS CAD (coronary artery disease) Surgical History History of appendectomy S/P PTCA (percutaneous transluminal coronary angioplasty) S/P CABG (coronary artery bypass graft) Family History Father , at age 82 Diabetes Mother , at age 58 Diabetes Social History Smoking and tobacco/nicotine status: current every day tobacco/nicotine user (1 PPD) cigarettes Packs smoked per day: 1 Years cigarettes smoked: 60 Second hand smoke exposure: Yes Alcohol intake: current Alcohol intake frequency: few times a week Alcohol type: hard liquor Substance/Drug Use: never Caregiver/support person: Yes Lives independently: Yes Household members: spouse Housing: House Marital status: / Current occupational status: retired Current gender identity: Male Special jaison needs: No Agree to transfusion: Yes Vitals/I&O/Wt Last Vital Signs Temp 97.6 F 01/26/25 15:21 Pulse 80 01/26/25 15:21 Resp 20 H 01/26/25 15:21 BP 114/70 01/26/25 15:21 Pulse Ox 92 01/26/25 15:21 O2 Del Method Room Air 01/26/25 15:21 Weight last 48 hrs Weight 78.018 kg Physical Exam 2 Const: COMMON NORMALS: no acute distress, average body habitus and patient oriented x3 HENMT: COMMON NORMALS: normocephalic and atraumatic HEAD & SCALP: n ormocephalic and atraumatic Eye: COMMON NORMALS: Equal, round and reactive pupils present PUPIL: Yes Equal, round and reactive pupils present Neck/C-Spine: COMMON NORMALS: supple Resp: COMMON NORMALS: clear to auscultation bilaterally AUSCULTATION: clear to auscultation bilaterally Cardio: COMMON NORMALS: regular rate, regular rhythm and No murmurs present (Cardio) RATE: regular rate RHYTHM: regular rhythm GI: COMMON NORMALS: Soft to palpation, non-tender and no masses PALPATION: Yes Soft to palpation Extremity: COMMON NORMALS: no clubbing, cyanosis or edema Neuro: COMMON NORMALS: patient oriented x3 and CN's II-XII intact bilaterally Psych: COMMON NORMALS: mental status grossly normal Skin: COMMON NORMALS: no rashes or lesions noted, no wounds and turgor normal GENERAL SKIN EXAM: no rashes or lesions noted and turgor normal Data 01/26/25 15:29 01/26/25 15:29 A&P Assessment and plan 1. ST elevation myocardial infarction (STEMI): 2. CAD (coronary artery disease): 3. Nicotine dependence, cigarettes, uncomplicated: 4. HTN (hypertension): 5. Diabetes: 6. COPD (chronic obstructive pulmonary disease): Plan: 74 year old male presenting with STEMI, now status post PCI per cardiology. Hospitalists consulted for medical management. STEMI - now s/p PCI with 3 stents placed - h/o prior stents and CABG - ongoing smoker - Continue aggrastat for 6 hours after PCI - cont. ASA/plavix for at least one year - allergy to statin COPD - not in exacerbation - cont. home inhalers or eq. DMII - hold home jardiance, glipizide, sitagliptin - [facility] inpatient - get A1c HTN - cont. home antihypertensives when BP will tolerate BPH - cont. finasteride/tamsulosin Tobacco dependence - cessation advised Diet: HH Disposition - discharge planning once cleared per cardiology. PDMP PDMP Reviewed: Not Reviewed Consult Attestations 2 Medical Necessity Statement: post PCI care. Time Spent in Patient Care: 16 - 35 minutes Coding Level of Care Code Acute Code for [facility] Diagnoses ST elevation myocardial infarction (STEMI) I21.3 CAD (coronary artery disease) I25.10 Nicotine dependence, cigarettes, uncomplicated F17.210 HTN (hypertension) I10 Diabetes E11.9 COPD (chronic obstructive pulmonary disease) J44.9
--- NOTE | 2025-01-26 17:24 | ECG_ITS ---
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1950 Requested By: Catherine García Order Number: [id number] Reading MD: FLOR TSE Measurements Intervals [place] Rate: 57 P: 47 WA: 234 QRS: -35 QRSD: 104 T: 76 QT: 463 QTc: 451 Interpretive Statements SINUS BRADYCARDIA WITH FIRST DEGREE AV BLOCK LOW QRS VOLTAGE IN PRECORDIAL LEADS [QRS DEFLECTION < 1.0 mV IN CHEST LEADS] POSSIBLE ANTERIOR MYOCARDIAL INFARCTION , OF INDETERMINATE AGE [30 ms Q WAVE IN V3/V4, OR R < 0.2 mV IN V4] INFERIOR MYOCARDIAL INFARCTION , OF INDETERMINATE AGE [40+ ms Q WAVE AND/OR ST/T ABNORMALITY IN II/aVF] Compared to ECG 01/26/2025 15:23:58 Sinus rhythm no longer present Myocardial infarct finding still present Electronically Signed On 01-28-2025 22:22:28 CDT by FLOR TSE [email or web address]
[2025-01-26 18:31] LABS: Troponin 5 2HR 5471 ng/L (0-15); Troponin 5 2HR Delta 4841 ABS# (0-10)
[2025-01-26 20:08] LABS: Partial Thromboplastin Time 69.2 SECONDS (23.9-36.7)
[2025-01-26 21:13] LABS: Estmated Average Glucose 192; Hemoglobin A1C 8.3 % (4.0-6.0)
--- NOTE | 2025-01-26 21:24 | ECG_ITS ---
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 Measurements Intervals [place] Rate: 83 P: -67 MS: 225 QRS: -52 QRSD: 90 T: -49 QT: 480 QTc: 567 Interpretive Statements RHYHM UNINTERPRETABLE BECAUSE OF BASELINE ARTIFACT Electronically Signed On 01-28-2025 10:30:31 CDT by Song Hedrick M.D. [id number]
[2025-01-26 22:26] LABS: Partial Thromboplastin Time 31.0 SECONDS (23.9-36.7)
[2025-01-26 22:28] LABS: Troponin 5 6HR 5166 ng/L (0-15); Troponin 5 6HR Delta 4536 ng/L (0-12)
[2025-01-26] MEDS: norepinephrine 4 MG/250 ML BAG 7.5 MG IV (23:00)
--- NOTE | 2025-01-26 23:17 | PC.NURSE ---
Contacted Dr. Hedrick about patients blood pressures being 70s/40s. Given orders to transfer patient to ICU so that Levophed could be started. Called patients son to update him.
[2025-01-27] VITALS (103 sets, daily range): BP systolic 77–136; BP diastolic 40–74; PULSE 48–87; RESP 3–34; TEMP 36.8–37.5; O2SAT 87–97
[2025-01-27 04:06] LABS: Hematocrit 41.3 % (37-53); Hemoglobin 13.80 g/dL (11.27-16.99); Mean Corpuscular HGB Conc 33.4 g/dL (30-55); Mean Corpuscular Hemoglobin 32.5 pg (27-33); Mean Corpuscular Volume 97.2 fl (82-101); Nucleated Red Blood Cells % 0 %; Platelet Count 219 10^3/cmm (157-399); Red Blood Count 4.25 10^6/uL (3.85-5.65); White Blood Count 15.68 10^3/uL (3.29-11.43)
[2025-01-27 04:29] LABS: Anion Gap 15.4 (5-19); Blood Urea Nitrogen 18 mg/dL (8-23); Calcium 8.2 mg/dL (8.5-10.5); Carbon Dioxide 23 mmol/L (22-29); Chloride 106 mmol/L (98-107); Creatinine Clr Calc Pharmacy 82.7833; Glucose 202 mg/dL (65-115); Osmolality Calculated 298 mOsm/kg (285-295); Potassium 4.4 mmol/L (3.5-5.1); Sodium 140 mmol/L (136-145)
--- NOTE | 2025-01-27 09:48 | P.PN_ITS ---
<Statement entered by Song Hedrick M.D - 01/28/25 11:59> Patient was cared for in conjunction with an advanced practice practitioner.? I reviewed the chart and all pertinent data including imaging, telemetry, and laboratory results.? I discussed the patient in detail with the advanced practice practitioner.? Please see?their note for progress note, testing results and agreed upon plan of care for the patient. Continue aspirin and plavix Wean off levophed as able Continue ICU monitoring today ECHO shows normal LV systolic function Subjective 2 Subjective: Yesterday he underwent coronary angiogram, had thrombectomy and 3 stents placed to the SVG to RCA he developed some hypotension overnight -was moved to the ICU and started on Levophed, currently on 2 mcg/min. He denies chest pain or shortness of breath this morning. Vitals/I&O/Wt Last Vital Signs Temp 98.3 F 01/27/25 07:30 Pulse 68 01/27/25 07:56 Resp 18 01/27/25 07:40 BP 131/74 01/27/25 07:30 Pulse Ox 95 01/27/25 07:40 O2 Del Method Nasal Cannula 01/27/25 07:40 O2 Flow Rate 2 01/27/25 07:40 01/26/25 01/27/25 01/27/25 22:59 06:59 14:59 Intake Total 520 / 672.25 152.25 / 672.25 67.00 / 67.00 Output Total 350 / 1075 725 / 1075 Balance 170 / -402.75 -572.75 / -402.75 67.00 / 67.00 Weight last 48 hrs Weight 159 lb 13.362 oz Weight 172 lb Physical Exam 2 Const: COMMON NORMALS: no acute distress and patient oriented x3 GENERAL APPEARANCE: cooperative and comfortable ORIENTATION/CONSCIOUSNESS: Yes awake, Yes oriented to person, Yes oriented to place and Yes oriented to time Chest: COMMONS NORMALS: normal inspection of the chest and normal palpation of entire chest wall CHEST: Yes Symmetrical chest wall rise Resp: COMMON NORMALS: normal respiratory effort, No retractions, No use of accessory muscles and clear to auscultation bilaterally EFFORT & INSPECTION: Yes symmetric chest movement AUSCULTATION: clear to auscultation bilaterally Cardio: COMMON NORMALS: regular rate, regular rhythm, S1 normal heart sound present, S2 normal heart sound present, No gallops present (Cardio), No clicks present (Cardio), No murmurs present (Cardio) and No rub (Cardio) RATE: r egular rate RHYTHM: regular rhythm HEART SOUNDS: S1 normal heart sound present and S2 normal heart sound present PERIPHERAL PULSES: radial pulses present, posterior tibial pulses present and dorsalis pedis present Extremity: COMMON NORMALS: no pedal edema Neuro: COMMON NORMALS: patient oriented x3 and moves all extremities S ENSORIUM/ORIENTATION: Yes oriented to person, Yes oriented to place and Yes oriented to time Data 01/27/25 03:48 01/27/25 03:48 A&P Assessment and plan 1. ST elevation myocardial infarction (STEMI): 2. CAD (coronary artery disease): 3. PAD (peripheral artery disease): 4. HTN (hypertension): 5. Hx pulmonary embolism: 6. Tobacco abuse: 7. Diabetes: 8. Statin intolerance: 9. COPD (chronic obstructive pulmonary disease): Plan: Will keep him in the ICU today for close monitoring, will attempt to wean Levophed infusion if blood pressure allows. Will pull right femoral sheath now. There is no bleeding or oozing at the sheath site. No complaint of back pain or leg pain. Abdomen is soft. Blood pressure ranging 115-130 systolic on Levophed. PDMP PDMP Reviewed: Not Reviewed Attestations 2 Medical Necessity Statement*: STEMI with hypotension requiring vasopressor Coding Level of Care Code Acute Code for [facility] Diagnoses ST elevation myocardial infarction (STEMI) I21.3 CAD (coronary artery disease) I25.10 PAD (peripheral artery disease) I73.9 HTN (hypertension) I10 Hx pulmonary embolism Z86.711 Tobacco abuse Z72.0 Diabetes E11.9 Statin intolerance Z78.9 COPD (chronic obstructive pulmonary disease) J44.9
[2025-01-27] MEDS: fentaNYL 50 mcg/mL INJ 2mL IVP (10:04)
--- NOTE | 2025-01-27 10:45 | PC.NURSE ---
Femoral Sheath was pulled out at 10:[address] Hedrick's orders. 15 minutes of pressure was held at site. Patient is stable with no hematoma formation.
--- NOTE | 2025-01-27 11:17 | P.PN_ITS ---
Subjective 2 Subjective: Transferred to ICU for hypotension ON. Vitals/I&O/Wt Last Vital Signs Temp 98.3 F 01/27/25 07:30 Pulse 72 01/27/25 11:03 Resp 16 01/27/25 11:03 BP 102/50 01/27/25 10:45 Pulse Ox 93 01/27/25 11:03 O2 Del Method Room Air 01/27/25 11:03 O2 Flow Rate 2 01/27/25 07:40 01/26/25 01/27/25 01/27/25 22:59 06:59 14:59 Intake Total 520 / 520 152.25 / 672.25 67.00 / 67.00 Output Total 350 / 350 725 / 1075 Balance 170 / 170 -572.75 / -402.75 67.00 / 67.00 Weight last 48 hrs Weight 72.5 kg Weight 78.018 kg Physical Exam 2 Const: COMMON NORMALS: no acute distress, average body habitus and patient oriented x3 HENMT: COMMON NORMALS: normocephalic and atraumatic HEAD & SCALP: n ormocephalic and atraumatic Eye: COMMON NORMALS: Equal, round and reactive pupils present PUPIL: Yes Equal, round and reactive pupils present Neck/C-Spine: COMMON NORMALS: supple Resp: COMMON NORMALS: clear to auscultation bilaterally AUSCULTATION: clear to auscultation bilaterally Cardio: COMMON NORMALS: regular rate, regular rhythm and No murmurs present (Cardio) RATE: regular rate RHYTHM: regular rhythm GI: COMMON NORMALS: Soft to palpation, non-tender and no masses PALPATION: Yes Soft to palpation Extremity: COMMON NORMALS: no clubbing, cyanosis or edema Neuro: COMMON NORMALS: patient oriented x3 and CN's II-XII intact bilaterally Psych: COMMON NORMALS: mental status grossly normal Skin: COMMON NORMALS: no rashes or lesions noted, no wounds and turgor normal GENERAL SKIN EXAM: no rashes or lesions noted and turgor normal Data 01/27/25 03:48 01/27/25 03:48 A&P Assessment and plan 1. ST elevation myocardial infarction (STEMI): 2. CAD (coronary artery disease): 3. Nicotine dependence, cigarettes, uncomplicated: 4. Enrolled in chronic care management: Plan: 74 year old male presenting with STEMI, now status post PCI per cardiology. Hospitalists consulted for medical management. STEMI - now s/p PCI with 3 stents placed - h/o prior stents and CABG - ongoing smoker - cont. ASA/plavix for at least one year - allergy to statin - right femoral sheath pulled per cardiology, no issues. - leukocytosis likely reactive, monitor. COPD - not in exacerbation - cont. home inhalers or eq. DMII - hold home jardiance, glipizide, sitagliptin - SSI inpatient - get A1c HTN - cont. home antihypertensives when BP will tolerate - episode of hypotension O/N, transferred to ICU for pressor mgmt. - wean levophed as tolerated, down to 2mcg currently. BPH - cont. finasteride/tamsulosin Tobacco dependence - cessation advised Diet: HH Disposition - transferred to ICU for hypotension mgmt on pressors. PDMP PDMP Reviewed: Not Reviewed Attestations 2 Medical Necessity Statement*: Anticipate inpatient care > 3 midnights 2/2 PCI, hypotension requiring pressors O/N, in ICU currently. Time Spent in Patient Care: 16 - 35 minutes Coding Level of Care Code Acute Code for Chg Fwd Diagnoses ST elevation myocardial infarction (STEMI) I21.3 CAD (coronary artery disease) I25.10 Nicotine dependence, cigarettes, uncomplicated F17.210 Enrolled in chronic care management Z78.9
[2025-01-27] MEDS: norepinephrine 4 MG/250 ML BAG 15 MG IV (11:53)
[2025-01-28] VITALS (44 sets, daily range): BP systolic 96–133; BP diastolic 53–75; PULSE 56–85; RESP 9–32; TEMP 36.8; O2SAT 89–96; BMI 23.9
[2025-01-28 05:31] LABS: Hematocrit 38.6 % (37-53); Hemoglobin 12.90 g/dL (11.27-16.99); Mean Corpuscular HGB Conc 33.4 g/dL (30-55); Mean Corpuscular Hemoglobin 31.2 pg (27-33); Mean Corpuscular Volume 93.5 fl (82-101); Nucleated Red Blood Cells % 0 %; Platelet Count 183 10^3/cmm (157-399); Red Blood Count 4.13 10^6/uL (3.85-5.65); White Blood Count 12.12 10^3/uL (3.29-11.43)
[2025-01-28 05:58] LABS: Anion Gap 14.5 (5-19); Blood Urea Nitrogen 14 mg/dL (8-23); Calcium 8.6 mg/dL (8.5-10.5); Carbon Dioxide 23 mmol/L (22-29); Chloride 105 mmol/L (98-107); Creatinine Clr Calc Pharmacy 79.7958; Glucose 175 mg/dL (65-115); Osmolality Calculated 293 mOsm/kg (285-295); Potassium 3.5 mmol/L (3.5-5.1); Sodium 139 mmol/L (136-145)
--- NOTE | 2025-01-28 09:07 | P.DS_ITS ---
<Statement entered by Song Hedrick M.D - 02/02/25 07:45> Patient was cared for in conjunction with an advanced practice practitioner.? I reviewed the chart and all pertinent data including imaging, telemetry, and laboratory results.? I discussed the patient in detail with the advanced practice practitioner.? Please see?their note for discharge summary, testing results and agreed upon plan of care for the patient. Discharge Providers Date of Admission: 01/26/25 16:25 Date of Discharge: January 28, 2025 Attending Provider at Admission: Song Hedrick M.D Attending Provider at Discharge: Song Hedrick M.D Primary Care Provider: HARLEY Manning Diagnoses at Discharge Discharge Diagnosis 1. ST elevation myocardial infarction (STEMI): 2. CAD (coronary artery disease): 3. Nicotine dependence, cigarettes, uncomplicated: 4. Enrolled in chronic care management: Reason for Visit Reason for Visit: STEMI ALERT Brief History: Pito Lucas is a 74 year old male with past medical history of CAD status post CABG in 2019, diabetes, COPD who has presented with severe substernal chest pain. Per patient it started a few hours ago. Substernal with radiation to the left arm. On arrival to the hospital, chest pain has improved. EKG is showing ST elevation in inferior leads with ST depressions in leads V1 and V2. Hospital Course Hospital Course He underwent coronary angiogram: LAD and RCA totally occluded. SVG to RCA total thrombotic occlusion treated with manual thrombectomy and ERICK x 3. He continued Aggrastat for 6 hours post procedure. Will continue aspirin and Plavix for 1 year. Renal function is normal. Medication adherence was discussed with him again. He will discharge home today, follow-up with us in the cardiology clinic in 7 to 10 days. Physical Exam Const: COMMON NORMALS: no acute distress and patient oriented x3 GENERAL APPEARANCE: cooperative ORIENTATION/CONSCIOUSNESS: Yes awake, Yes oriented to person, Yes oriented to place and Yes oriented to time Chest: COMMONS NORMALS: normal inspection of the chest and normal palpation of entire chest wall CHEST: Yes Symmetrical chest wall rise Resp: COMMON NORMALS: normal respiratory effort, No retractions, No use of accessory muscles and clear to auscultation bilaterally AUSCULTATION: clear to auscultation bilaterally Cardio: COMMON NORMALS: regular rate, regular rhythm, S1 normal heart sound present, S2 normal heart sound present, No gallops present (Cardio), No clicks present (Cardio), No murmurs present (Cardio) and No rub (Cardio) RATE: regular rate RHYTHM: regular rhythm HEART SOUNDS: S1 normal heart sound present and S2 normal heart sound present PERIPHERAL PULSES: radial pulses present positive right 2+ and femoral pulses present positive right 2+ Neuro: COMMON NORMALS: patient oriented x3 and moves all extremities SENSORIUM/ORIENTATION: Yes oriented to person, Yes oriented to place and Yes oriented to time Skin: WOUNDS: Yes surgical site (no hematoma palpable) Details: no odor Discharge Data Studies Completed and Pending Completed Studies During Hospitalization Category Date Time Status CV. echo complete* [id number] Routine Ultrasound 01/26/25 16:59 Completed Pending at discharge Category Date Time Status MANAGER LEASING request for service Stat Exams 01/26/25 15:24 Taken Basic Metabolic Panel AM LABS Lab 01/29/25 04:00 Ordered Complete Blood Count w/Auto AM LABS Lab 01/29/25 04:00 Ordered Laboratory Results WBC 12.12 10^3/uL (3.29-11.43) H 01/28/25 04:53 RBC 4.13 10^6/uL (3.85-5.65) 01/28/25 04:53 Hgb 12.90 g/dL (11.27-16.99) 01/28/25 04:53 Hct 38.6 % (37-53) 01/28/25 04:53 MCV 93.5 fl (82-101) 01/28/25 04:53 MCH 31.2 pg (27-33) 01/28/25 04:53 MCHC 33.4 g/dL (30-55) 01/28/25 04:53 RDW 14.5 % (12.1-15.1) 01/28/25 04:53 Plt Count 183 10^3/cmm (157-399) 01/28/25 04:53 MPV 10.8 fL (7.4-10.4) H 01/28/25 04:53 Neut % (Auto) 64.0 % 01/28/25 04:53 Lymph % (Auto) 25.4 % 01/28/25 04:53 Gage % (Auto) 7.8 % 01/28/25 04:53 Eos % (Auto) 2.2 % 01/28/25 04:53 Baso % (Auto) 0.2 % 01/28/25 04:53 Neut # (Auto) 7.74 10^3/uL (1.8-7.7) H 01/28/25 04:53 Lymph # (Auto) 3.1 10^3/uL (0.8-4.8) 01/28/25 04:53 Gage # (Auto) 1.0 10^3/uL (0.2-0.9) H 01/28/25 04:53 Eos # (Auto) 0.3 10^3/uL (0.0-0.8) 01/28/25 04:53 Baso # (Auto) 0.0 10^3/uL (0.0-0.1) 01/28/25 04:53 Nucleated RBC % (auto) 0 % 01/28/25 04:53 Nucleated RBCs # 0.0 /100WBC 01/28/25 04:53 APTT 31.0 SECONDS (23.9-36.7) D 01/26/25 21:56 Sodium 139 mmol/L (136-145) 01/28/25 04:53 Potassium 3.5 mmol/L (3.5-5.1) 01/28/25 04:53 Chloride 105 mmol/L (98-107) 01/28/25 04:53 Carbon Dioxide 23 mmol/L (22-29) 01/28/25 04:53 Anion Gap 14.5 (5-19) 01/28/25 04:53 BUN 14 mg/dL (8-23) 01/28/25 04:53 Creatinine 0.6 mg/dL (0.7-1.2) L 01/28/25 04:53 GFR Calculation Not Reportable 01/28/25 04:53 Glucose 175 mg/dL (65-115) H 01/28/25 04:53 POC Glucose 218 mg/dL (70-110) H 01/28/25 06:49 Estimat Average Glucose 192 01/26/25 15:29 Hemoglobin A1c 8.3 % (4.0-6.0) H 01/26/25 15:29 Calculated Osmolality 293 mOsm/kg (285-295) 01/28/25 04:53 Calcium 8.6 mg/dL (8.5-10.5) 01/28/25 04:53 Total Bilirubin 0.3 mg/dL (0.15-1.2) 01/26/25 15:29 AST 70 U/L (0-40) H 01/26/25 15:29 ALT 17 U/L (0-41) 01/26/25 15:29 Alkaline Phosphatase 51 U/L (40-130) 01/26/25 15:29 Troponin T Baseline 630 ng/L (0-15) H* 01/26/25 15:29 Troponin T 120 Minute 5471 ng/L (0-15) H 01/26/25 17:42 Delta Troponin T 4841 ABS# (0-10) H* 01/26/25 17:42 Troponin T Hi Sens 6Hr 5166 ng/L (0-15) H 01/26/25 21:56 Troponin T Hi Sens 6Hr Delta 4536 ng/L (0-12) H* 01/26/25 21:56 Total Protein 5.8 g/dL (6.6-8.7) L 01/26/25 15:29 Albumin 3.3 g/dL (3.5-5.2) L 01/26/25 15: Globulin 2.5 g/dL (1.3-4.6) 01/26/25 15:29 Vitals Last Vital Signs Temp 98.2 F 01/28/25 00:15 Pulse 75 01/28/25 07:45 Resp 16 01/28/25 07:45 BP 108/62 01/28/25 07:30 Pulse Ox 93 01/28/25 07:45 O2 Del Method Room Air 01/28/25 07:45 O2 Flow Rate 1.5 01/28/25 05:30 Discharge Plan Discharge Patient Disposition: Home Condition: Stable Prescriptions: New clopidogrel 75 mg Tablet 75 mg PO DAILY Qty: 90 3RF Continued Incruse Ellipta 62.5 mcg/actuation blister with device See Rx Instructions .ROUTE .COMPLEX Qty: 30 5RF Dose Instruction: INHALE 1 PUFF INTO LUNGS DAILY Rx Instructions: INHALE 1 PUFF INTO LUNGS DAILY tamsulosin 0.4 mg capsule See Rx Instructions .ROUTE .COMPLEX Qty: 60 5RF Dose Instruction: TAKE ONE CAPSULE BY MOUTH TWICE DAILY Rx Instructions: TAKE ONE CAPSULE BY MOUTH TWICE DAILY Januvia 25 mg tablet 25 mg PO DAILY Qty: 30 5RF glipizide 10 mg tablet extended release 24hr See Rx Instructions .ROUTE .COMPLEX Qty: 60 5RF Dose Instruction: TAKE ONE TABLET BY MOUTH TWICE DAILY; MUST TAKE WITH FOOD Rx Instructions: TAKE ONE TABLET BY MOUTH TWICE DAILY; MUST TAKE WITH FOOD finasteride 5 mg tablet See Rx Instructions .ROUTE .COMPLEX Qty: 30 5RF Dose Instruction: TAKE ONE TABLET BY MOUTH DAILY Rx Instructions: TAKE ONE TABLET BY MOUTH DAILY carvedilol 6.25 mg tablet See Rx Instructions .ROUTE .COMPLEX Qty: 60 5RF Dose Instruction: TAKE ONE TABLET BY MOUTH EVERY TWELVE HOURS Rx Instructions: TAKE ONE TABLET BY MOUTH EVERY TWELVE HOURS budesonide-formoterol [Symbicort] 160-4.5 mcg/actuation HFA aerosol inhaler See Rx Instructions .ROUTE .COMPLEX Qty: 10.2 5RF Dose Instruction: INHALE TWO PUFFS INTO LUNGS TWICE DAILY Rx Instructions: INHALE TWO PUFFS INTO LUNGS TWICE DAILY albuterol sulfate 90 mcg/actuation HFA aerosol inhaler See Rx Instructions .ROUTE .COMPLEX Qty: 8.5 5RF Dose Instruction: INHALE 2 PUFFS INTO LUNGS EVERY 4 HOURS NEEDED FOR SHORTNESS OF BREATH Rx Instructions: INHALE 2 PUFFS INTO LUNGS EVERY 4 HOURS NEEDED FOR SHORTNESS OF BREATH Jardiance 10 mg tablet 10 mg PO DAILY Qty: 30 2RF (DME) blood-glucose meter [Blood Glucose Monitoring] Kit See Rx Instructions .ROUTE .MEDSUPPLY Qty: 1 0RF Rx Instructions: As directed; to test one x day (DME) lancets 31 gauge misc See Rx Instructions .ROUTE .MEDSUPPLY Qty: 100 2RF Rx Instructions: As directed; to test one time day (DME) OneTouch Ultra Test Strip See Rx Instructions .ROUTE .COMPLEX Qty: 50 3RF Dose Instruction: USE DIRECTED TO TEST ONCE DAILY Rx Instructions: USE DIRECTED TO TEST ONCE DAILY lisinopril 20 mg tablet 20 mg PO DAILY Qty: 90 3RF aspirin 81 mg tablet,delayed release (DR/EC) 81 mg PO QAM [employer] OK for DC: Hospitalist Discharge Order = DC NOW: Discharge Order (Routine); Ordered 01/28/25 Ordered By: Any Piedra Referrals: Umm Maradiaga NP [Nurse Practitioner, Cardiology] - 02/05/25 1:00 pm Mana Heck FNP [Primary Care Provider, Family Practice] - 1 week Referral Note: We have notified your physician's clinic of the need for a follow-up appointment to be scheduled. If you have not heard from them within the next 2 business days, please call them directly. Discharge Diet: Diabetic Discharge Activity: Increase activity as tolerated Patient Instructions: Clopidogrel (By mouth) (Plavix), Coronary Angioplasty (DC), Chest Pain Stoplight, Opioid Safety, Patient Portal & Emir Instructions Activity Restrictions/Additional Instructions: No lifting over 5 pounds with the right arm for 4 days. Discharge Date/Time: 01/28/25 10:43 Discharge Attestations Time Spent in Discharge Care*: less than 30 min Status at Discharge: Cognitive status at discharge: cognitively intact , Behavioral status at discharge: cooperative , Quality Metrics Clinical Quality Measures [ Acute Myocardial Infaction { Clinical Trial Participant: No; Contraindication to aspirin: None; Aspirin prescribed; Contraindication to statin: None; Statin prescribed; Contraindication to PCI: None; PCI performed;}] Coding Level of Care Code Acute Code for Chg Fwd Diagnoses ST elevation myocardial infarction (STEMI) I21.3 CAD (coronary artery disease) I25.10 Nicotine dependence, cigarettes, uncomplicated F17.210 Enrolled in chronic care management Z78.9
--- NOTE | 2025-01-28 09:52 | P.PN_ITS ---
Subjective 2 Subjective: Now off pressors. Vitals/I&O/Wt Last Vital Signs Temp 98.2 F 01/28/25 00:15 Pulse 75 01/28/25 07:45 Resp 16 01/28/25 07:45 BP 108/62 01/28/25 07:30 Pulse Ox 93 01/28/25 07:45 O2 Del Method Room Air 01/28/25 07:45 O2 Flow Rate 1.5 01/28/25 05:30 01/27/25 01/28/25 01/28/25 22:59 06:59 14:59 Intake Total 109.25 / 201.50 75.250 / 276.750 405.75 / 405.75 Output Total 275 / 275 2075 / 2350 125 / 125 Balance -165.75 / -73.50 -1999.750 / -2073.250 280.75 / 280.75 Weight last 48 hrs Weight 71.5 kg Weight 72.5 kg Weight 78.018 kg Physical Exam 2 Const: COMMON NORMALS: no acute distress, average body habitus and patient oriented x3 HENMT: COMMON NORMALS: normocephalic and atraumatic HEAD & SCALP: n ormocephalic and atraumatic Eye: COMMON NORMALS: Equal, round and reactive pupils present PUPIL: Yes Equal, round and reactive pupils present Neck/C-Spine: COMMON NORMALS: supple Resp: COMMON NORMALS: clear to auscultation bilaterally AUSCULTATION: clear to auscultation bilaterally Cardio: COMMON NORMALS: regular rate, regular rhythm and No murmurs present (Cardio) RATE: regular rate RHYTHM: regular rhythm GI: COMMON NORMALS: Soft to palpation, non-tender and no masses PALPATION: Yes Soft to palpation Extremity: COMMON NORMALS: no clubbing, cyanosis or edema Neuro: COMMON NORMALS: patient oriented x3 and CN's II-XII intact bilaterally Psych: COMMON NORMALS: mental status grossly normal Skin: COMMON NORMALS: no rashes or lesions noted, no wounds and turgor normal GENERAL SKIN EXAM: no rashes or lesions noted and turgor normal Data 01/28/25 04:53 01/28/25 04:53 A&P Assessment and plan 1. ST elevation myocardial infarction (STEMI): 2. CAD (coronary artery disease): 3. Nicotine dependence, cigarettes, uncomplicated: Plan: 74 year old male presenting with STEMI, now status post PCI per cardiology. Hospitalists consulted for medical management. STEMI - now s/p PCI with 3 stents placed - h/o prior stents and CABG - ongoing smoker - cont. ASA/plavix for at least one year - allergy to statin - right femoral sheath pulled per cardiology, no issues. - leukocytosis likely reactive, decreasing. COPD - not in exacerbation - cont. home inhalers or eq. DMII - hold home jardiance, glipizide, sitagliptin - SSI inpatient - A1c 8.3, would benefit from tighter control going forward - follow up with PCP after discharge. HTN - cont. home antihypertensives when BP will tolerate - episode of hypotension after PCI, transferred to ICU for pressor mgmt. - levophed ran at 1mcg overnight, has been off this AM and patient normotensive. BPH - cont. finasteride/tamsulosin Tobacco dependence - cessation advised Diet: HH Disposition - OK for discharge planning per primary from medical standpoint. - follow up with PCP for antidiabetic medication optimization. PDMP PDMP Reviewed: Not Reviewed Attestations 2 Medical Necessity Statement*: > 2 midnights for post PCI care and hypotension requiring pressors. Time Spent in Patient Care: 16 - 35 minutes Coding Level of Care Code Acute Code for Chg Fwd Diagnoses ST elevation myocardial infarction (STEMI) I21.3 CAD (coronary artery disease) I25.10 Nicotine dependence, cigarettes, uncomplicated F17.210
--- NOTE | 2025-01-28 10:51 | PC.NURSE ---
All of patient's IVs were discontinued. Discharge information and all prescriptions were given to the patient. Patient was stable during discharge.
== END 2025-01-28 10:43 | disposition home or self-care (01) | DRG 322 ==
LOC: ER 15:28 → CDL 15:29 → CSU 16:26 → ICU 23:01
PROVIDERS: Internal Medicine; Admitting Provider Internal Medicine; Emergency Provider Emergency Medicine; PCP Nurse Practitioner Family; Visit Provider Internal Medicine
PROC: 027036Z Dilation of Coronary Artery, One Artery with Three Drug-eluting Intraluminal Devices, Percutaneous Approach (ICD-10-PCS; principal; 2025-01-26 15:30)
PROC: 027036Z Dilation of Coronary Artery, One Artery with Three Drug-eluting Intraluminal Devices, Percutaneous Approach (ICD-10-PCS; 2025-01-26 15:30)
DX: I21.19 ST elevation (STEMI) myocardial infarction involving other coronary artery of inferior wall (principal); I25.810 Atherosclerosis of coronary artery bypass graft(s) without angina pectoris; I25.10 Atherosclerotic heart disease of native coronary artery without angina pectoris; J44.9 Chronic obstructive pulmonary disease, unspecified; E11.51 Type 2 diabetes mellitus with diabetic peripheral angiopathy without gangrene; I10 Essential (primary) hypertension; E78.5 Hyperlipidemia, unspecified; I95.9 Hypotension, unspecified; F17.210 Nicotine dependence, cigarettes, uncomplicated; N40.0 Benign prostatic hyperplasia without lower urinary tract symptoms; Z95.1 Presence of aortocoronary bypass graft; Z79.82 Long term (current) use of aspirin; Z79.85 Long-term (current) use of injectable non-insulin antidiabetic drugs; Z79.899 Other long term (current) drug therapy; Z88.8 Allergy status to other drugs, medicaments and biological substances; Z86.711 Personal history of pulmonary embolism; Z98.61 Coronary angioplasty status
CPT/HCPCS: 36415; 36416; 80048; 80053; 82962; 83036; 84484; 85025; 85347; 85730; 92973; 93005; 93306; 93455; 94640; 96372; 96374; 99152; 99153; 99285; C1725; C1757; C1769; C1874; C1887; C1894; C9606; J1644; J1815; J2250; J3010; J7030; J7626; J9999; Q9967

== ENCOUNTER → 2025-02-10 12:09 | Outpatient (BNVA) | payer OTHER, MEDICAID, SELFPAY | PROVIDERS: PCP Nurse Practitioner Family; Visit Provider Internal Medicine | DX: I25.10 Atherosclerotic heart disease of native coronary artery without angina pectoris (principal); Z72.0 Tobacco use; Z98.61 Coronary angioplasty status; Z86.711 Personal history of pulmonary embolism; Z95.1 Presence of aortocoronary bypass graft; I10 Essential (primary) hypertension; I25.2 Old myocardial infarction | CPT/HCPCS: 99214 ==

== ENCOUNTER → 2025-05-04 12:20 | Outpatient (BNVA) | payer OTHER, MEDICAID, SELFPAY | PROVIDERS: PCP Nurse Practitioner Family; Visit Provider Nurse Practitioner Family | DX: I10 Essential (primary) hypertension (principal); E11.65 Type 2 diabetes mellitus with hyperglycemia; N52.1 Erectile dysfunction due to diseases classified elsewhere | CPT/HCPCS: 80053; 80061; 82607; 83036; 84443; 85025 ==